=== PATIENT | male | born 1945 | race Caucasian/White ===

== ENCOUNTER 2021-04-05 07:17 | Outpatient (REF) | payer MEDICARE, SELFPAY ==
--- NOTE | ~2021-04-05 | XR_ITS ---
EXAMINATION: XR ELBOW, RIGHT CLINICAL INFORMATION: Pain COMPARISON: None TECHNIQUE: AP, lateral, and oblique views of the right elbow. FINDINGS: Bone alignment is normal. No fracture or dislocation is seen. There is mild arthritis at the humeral ulnar joint. There are periarticular soft tissue calcifications. There may be a small joint effusion. There is an osteophyte at the triceps tendon insertion to the olecranon. There are small ossifications adjacent to the medial and lateral humeral epicondyles. There is soft tissue arterial calcification. XR/XR elbow RT min 3V IMPRESSION: Arthritis. Periarticular soft tissue calcifications and question small joint effusion.
== END 2021-04-05 07:18 | disposition home or self-care (01) ==
LOC: HO.HOSX 07:17
PROVIDERS: Visit Provider Physician Assistant
DX: M19.021 Primary osteoarthritis, right elbow (principal); G56.21 Lesion of ulnar nerve, right upper limb
CPT/HCPCS: 73080; 99202

== ENCOUNTER → 2021-04-27 13:24 | Outpatient (BNVA) | payer MEDICARE, SELFPAY | PROVIDERS: PCP Nurse Practitioner; Visit Provider Orthopaedic Surgery | DX: M54.12 Radiculopathy, cervical region (principal); G56.21 Lesion of ulnar nerve, right upper limb; G56.01 Carpal tunnel syndrome, right upper limb | CPT/HCPCS: 99202 ==

== ENCOUNTER → 2021-05-11 10:39 | Outpatient (BNVA) | payer MEDICARE, SELFPAY | PROVIDERS: PCP Nurse Practitioner; Visit Provider Orthopaedic Surgery | DX: G56.01 Carpal tunnel syndrome, right upper limb (principal); G56.21 Lesion of ulnar nerve, right upper limb; M54.12 Radiculopathy, cervical region | CPT/HCPCS: 99202 ==

== ENCOUNTER → 2021-05-27 06:36 | Day surgery (SDC) | payer MEDICARE, SELFPAY ==
--- NOTE | 2021-05-26 09:41 | P.CONAN_ITS ---
HPI - Anesthesia Eval Consult details Narrative: Pt in new afib in preop. Case cx'd. 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 75yo M for Right Cubital Tunnel Release vs transposition,carpal tunnel release Cardiac cleared PMF Active Problems Active Problems: All Active Problems (Updated 04/27/21 @ 14:40 by Dorothea Rivera MD) Carpal tunnel syndrome of right wrist (Acute) Cervical radiculopathy (Acute) Cubital tunnel syndrome on right (Acute) Osteoarthritis of right elbow (Acute) Past Medical History Medical History (Updated 05/26/21 @ 09:47 by Smiley Leblanc NP) Anxiety Aortic insufficiency CAD (coronary artery disease) CKD (chronic kidney disease) Erectile dysfunction [id number] Gout H/O endocarditis HLD (hyperlipidemia) HTN (hypertension) Mitral valve regurgitation Osteoarthritis PAD (peripheral artery disease) Pulmonary nodules Thoracic aortic aneurysm Thrombocytopenia Tricuspid valve regurgitation Surgical History Surgical History (Updated 05/26/21 @ 09:47 by Smiley Leblanc NP) Hx of CABG (~2006) S/P mitral valve repair (~2006) Social History Social History (Updated 05/26/21 @ 09:47 by Smiley Leblanc NP) Alcohol intake: current Alcohol intake frequency: 0-2 drinks per day Alcohol type: wine Patient Tobacco Use Status: Former Tobacco user Quit Date: 2006 Current occupational status: retired 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 Allergies Allergy/AdvReac Type Severity Reaction Status Date / Time [id number]-IjI AdvReac Joint Pain Verified 05/27/21 06:58 Reductase Inhibitor Home Medications Medication Instructions Recorded Confirmed Last Taken Type aspirin 81 mg PO DAILY 05/26/21 05/26/21 Unknown History clotrimazole 1 % 1 appl TOPICAL 05/26/21 05/26/21 Unknown History topical cream BID colchicine 0.6 mg 1 tab PO DAILY 05/26/21 05/26/21 Unknown History tablet metoprolol 1 tab PO BID 05/26/21 05/26/21 Unknown History tartrate 25 mg tablet allopurinol 100 mg PO 05/27/21 05/27/21 Unknown History mg tablet Exam Exam Date and Time: May 26, 2021 0941 Narrative Narrative: EKG 03/2021 SR with 1st degree AV block, RBBB, LAFB, no signif ST-T wave changes ECHO 02/2020 mild to mod conc LVH with normal LV cavity size and systolic function, normal regional wall motion abn, EF 55-60%, nml RV size with grossly normal systolic function, mild, eccentric aortic insufficiency and a trileaflet valve, s/p mitral valve ring annuloplasty repair that is functioning well with no residual regurgitation, dilated aortic root at 4.4cm, ascending aorta at 4.3, transverse aorta at 4cm - c/w 2018 echo, unchanged, moderate LAE Assessment and Plan Assessment Anesthesia Assessment: Chart Reviewed
--- NOTE | 2021-05-27 07:26 | ECG_ITS ---
Test Reason : preop Blood Pressure : / mmHG Vent. Rate : 098 BPM Atrial Rate : 000 BPM P-R Int : 000 ms QRS Dur : 144 ms QT Int : 418 ms P-R-T Axes : 000 -77 059 degrees QTc Int : 533 ms Atrial fibrillation with premature ventricular or aberrantly conducted complexes Right bundle branch block Left anterior fascicular block Bifascicular block Abnormal ECG No previous ECGs available Referred By: Aby Mejía Electronically Signed By:CED MILLER MD
--- NOTE | 2021-05-27 08:01 | PC.NURSE ---
[place] [facility] in monitor irregular rhythm- no previous EKG in chart for comparison. Cardiac cleared cardiology Jennie Paredes MD 04/08/21. EKG ordered by Dr Bush found to be in new afib, RBBB, left anterior fasiclar block. Per Yesika, since patient is stable, asymptomatic patient able to return home and follow up with PCP, PCP to be notified of event. Case cancelled at this time. Patient belongings returned & ride called by patient self.
[2021-05-27 08:05] LABS: Hematocrit 41.1 % (42.0-52.0); Hemoglobin 14.1 g/dl (14.0-18.0); Mean Corpuscular HGB Conc 34.3 g/dl (31.0-36.0); Mean Corpuscular Hemoglobin 31.8 pg (27.0-33.0); Mean Corpuscular Volume 92.6 fL (80.0-98.0); Mean Platelet Volume 10.3 fL (9.4-12.4); Platelet Count 115 X10*3/uL (160-400); Red Blood Count 4.44 X10*6/uL (4.60-5.80); Red Cell Distribution Width 13.1 % (11.0-16.0); White Blood Count 5.4 X10*3/uL (4.8-10.8)
[2021-05-27 08:37] LABS: Anion Gap 9 (12-20); Blood Urea Nitrogen 26 mg/dL (9-16); Calcium 9.1 mg/dL (8.4-10.2); Carbon Dioxide 27 mmol/L (22-29); Chloride 110 mmol/L (96-108); Estimated Glomerular Filt Rate 56; Glucose Fasting 124 mg/dL (60-99); Potassium 4.2 mmol/L (3.3-5.1); Sodium 142 mmol/L (135-145)
== END ==
PROVIDERS: Nurse Practitioner; Visit Provider Orthopaedic Surgery
DX: G56.01 Carpal tunnel syndrome, right upper limb (principal); Z53.09 Procedure and treatment not carried out because of other contraindication; I12.9 Hypertensive chronic kidney disease with stage 1 through stage 4 chronic kidney disease, or unspecified chronic kidney disease; N18.30 Chronic kidney disease, stage 3 unspecified; I25.10 Atherosclerotic heart disease of native coronary artery without angina pectoris; Z95.1 Presence of aortocoronary bypass graft; I35.1 Nonrheumatic aortic (valve) insufficiency; D69.6 Thrombocytopenia, unspecified; Z79.899 Other long term (current) drug therapy; Z87.891 Personal history of nicotine dependence
CPT/HCPCS: 36415; 80048; 85027; 93005

== ENCOUNTER 2021-06-08 09:54 | Outpatient (REF) | payer MEDICARE, SELFPAY ==
[2021-06-08 12:43] LABS: Prothrombin Time 11.6 SEC (9.9-13.0)
== END 2021-06-08 09:55 | disposition home or self-care (01) ==
LOC: HO.LAB 09:54
PROVIDERS: PCP Internal Medicine; Referring Provider Internal Medicine; Visit Provider Internal Medicine
DX: Z01.810 Encounter for preprocedural cardiovascular examination (principal); I48.0 Paroxysmal atrial fibrillation; Z95.1 Presence of aortocoronary bypass graft; Z79.899 Other long term (current) drug therapy; Z87.891 Personal history of nicotine dependence; Z98.890 Other specified postprocedural states
CPT/HCPCS: 36415; 85610; 99202

== ENCOUNTER 2021-06-10 09:57 | Day surgery (SDC) | payer MEDICARE, SELFPAY ==
--- NOTE | 2021-06-09 13:05 | P.CONAN_ITS ---
Documented by User: Smiley Leblanc NP 06/21/21 13:18 HPI - Anesthesia Eval Consult details Narrative: 75yo M for Right Cubital Tunnel Release vs transposition,carpal tunnel release 05/27/21: Pt in new afib in preop. Case cx'd. Pt f/u with [facility] cardiology (originally cleared by pt's own impregnating helper). Now cleared by [facility] cardiology at [facility] Active Problems Active Problems: All Active Problems (Updated 06/08/21 @ 11:10 by Derek Herrmann MD) Status post aorto-coronary artery bypass graft (Acute) S/P mitral valve repair (Acute ~2006) Preoperative cardiovascular examination (Acute) PAF (paroxysmal atrial fibrillation) (Acute) Carpal tunnel syndrome of right wrist (Acute) Cervical radiculopathy (Acute) Cubital tunnel syndrome on right (Acute) Osteoarthritis of right elbow (Acute) Past Medical History Medical History Anxiety Aortic insufficiency CAD (coronary artery disease) CKD (chronic kidney disease) Erectile dysfunction Ihejaip-ke-ejz Gout H/O endocarditis HLD (hyperlipidemia) HTN (hypertension) Mitral valve regurgitation Osteoarthritis PAD (peripheral artery disease) Pulmonary nodules Thoracic aortic aneurysm Thrombocytopenia Tricuspid valve regurgitation Family History Family History Father No problems noted. Mother No problems noted. 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 Allergies Allergy/AdvReac Type Severity Reaction Status Date / Time [id number]-PsR Reductase AdvReac Joint Pain Verified 06/22/21 08:34 Inhibitor Home Medications Medication Instructions Recorded Confirmed Last Taken Type aspirin 81 mg PO DAILY 05/26/21 06/08/21 Unknown History clotrimazole 1 % topical cream 1 appl TOPICAL BID 05/26/21 06/08/21 Unknown History colchicine 0.6 mg tablet 1 tab PO DAILY 05/26/21 06/08/21 Unknown History allopurinol 100 mg tablet mg PO 05/27/21 06/08/21 Unknown History metoprolol tartrate 25 mg tablet 25 mg PO BID 06/08/21 06/08/21 Unknown History Exam Exam Date and Time: June 09, 2021 1305 Pertinent Lab Results Pertinent Lab Results: Laboratory Tests 05/27/21 05/27/21 07:47 07:47 WBC 5.4 Hgb 14.1 Hct 41.1 L Plt Count 115 L Sodium 142 Potassium 4.2 Chloride 110 H Carbon Dioxide 27 BUN 26 H Creatinine 1.26 Narrative Narrative: EKG 05/27/21 Vent. Rate : 098 BPM ? ? Atrial Rate : 000 BPM ?? P-R Int : 000 ms? QRS Dur : 144 ms ? ? QT Int : 418 ms ? ? ? P-R-T Axes : 000 -77 059 degrees ?? QTc Int : 533 ms ? Atrial fibrillation with premature ventricular or aberrantly conducted complexes Right bundle branch block Left anterior fascicular block Bifascicular block Abnormal ECG No previous ECGs available ECHO 02/2020 mild to mod conc LVH with normal LV cavity size and systolic function, normal regional wall motion abn, EF 55-60%, nml RV size with grossly normal systolic function, mild, eccentric aortic insufficiency and a trileaflet valve, s/p mitral valve ring annuloplasty repair that is functioning well with no residual regurgitation, dilated aortic root at 4.4cm, ascending aorta at 4.3, transverse aorta at 4cm - c/w 2019 echo, unchanged, moderate LAE Assessment and Plan Assessment Anesthesia Assessment: Chart Reviewed Documented by User: Edi Burrell MD 07/01/21 12:00 [facility] Past Medical History Medical History Anxiety Aortic insufficiency CAD (coronary artery disease) CKD (chronic kidney disease) Erectile dysfunction Kmzcegs-on-zsu Gout H/O endocarditis HLD (hyperlipidemia) HTN (hypertension) Mitral valve regurgitation Osteoarthritis PAD (peripheral artery disease) Pulmonary nodules Thoracic aortic aneurysm Thrombocytopenia Tricuspid valve regurgitation Family History Family History Father No problems noted. Mother No problems noted. 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 Meds Allergies Allergy/AdvReac Type Severity Reaction Status Date / Time Zqyyvvo-OUS-PvN Reductase AdvReac Joint Pain Verified 06/22/21 08:34 Inhibitor Home Medications Medication Instructions Recorded Confirmed Last Taken Type aspirin 81 mg PO DAILY 05/26/21 06/08/21 Unknown History clotrimazole 1 % topical cream 1 appl TOPICAL BID 05/26/21 06/08/21 Unknown History colchicine 0.6 mg tablet 1 tab PO DAILY 05/26/21 06/08/21 Unknown History allopurinol 100 mg tablet mg PO 05/27/21 06/08/21 Unknown History metoprolol tartrate 25 mg tablet 25 mg PO BID 06/08/21 06/08/21 Unknown History Exam Airway Mallampati Class: III TM Dist: >3cm Neck ROM: Full Loose/Missing/Broken Teeth: Yes Assessment and Plan Assessment Anesthesia Assessment: Anesthesia Plan Discussed Final Anesthetic Review Family History of Problems with Anesthesia: No History of Problems with Anesthesia: No NPO: Yes ASA Class: III Final Preanesthetic Review: No Changes in Pt Med Stat, Meds/Allgs Chart Reviewed, Consent Obtained/Reviewed and Anes Risks/Benef Reviewed Patient Risk: Intermediate Procedure Risk: Low Anesthetic Plan Anesthetic Plan: GA Disposition: Standard PACU
[2021-06-10] VITALS (7 sets, daily range): BP systolic 131–159; BP diastolic 58–85; PULSE 71–84; RESP 16–18; TEMP 36.1–36.6; O2SAT 98–99; BMI 31.6
[2021-06-10] MEDS: Lactated Ringers 1,000 ML 50 ML IVCONT (10:48)
--- NOTE | 2021-06-10 12:38 | MHC.SHP ---
Pre-Procedural Eval Section A Date of Service: 06/10/21 The patient is an INPATIENT: No Changes since office visit: No Cold of Flu in the past 2 weeks, No New Medical Problems, No Changes in Medication and No Patient answered all questions The History & Physical has been completed within 30 days and I have reviewed it.: Yes Section B Chief Complaint: carpal tunnel Allergies: Allergies Allergy/AdvReac Type Severity Reaction Status Date / Time Ipitmno-GGV-CtY Reductase AdvReac Joint Pain Verified 06/08/21 10:36 Inhibitor Plan I have reviewed the history and physical and performed a pertinent physical examination on my patient. No changes have occurred unless specified.
--- NOTE | 2021-06-10 12:39 | W.PM.OPN ---
Operative Note Operative Note Date of Service: 06/10/21 Narrative: Operative Note Narrative: Preop diagnosis: 1. right Cubital tunnel syndrome 2. Right carpal tunnel syndrome Postop diagnosis: Same Procedure: 1. right Cubital Tunnel Release 2. Right carpal tunnel release Surgeon: Dorothea Rivera MD Anesthesia: General Findings: Thickening and fibrosis about the ulnar nerve at the cubital tunnel Implants: none Tourniquet time: 19 minutes EBL: 5.0 ml Specimen: none Drains: None Complications: None Disposition: Brought to the recovery room in stable condition Plan: Follow-up in 10-14 days for wound check, and suture removal Indications: The patient is 75 years old with right cubital tunnel syndrome and right carpal tunnel syndrome with dense numbness . The risks and benefits of operative treatment, including but not limited to risk of damage to blood vessels, nerves, tendons, infection, recurrence, persistent pain or numbness, incomplete resolution of preoperative symptoms, or need for further surgery were discussed with the patient and they wished to proceed with surgery. Procedure: Once consent was obtained patient was brought back to the operating suite and placed in the operating table in a supine position. Perioperative antibiotics and anesthesia was administered by the anesthesia team. The limb was prepped and draped in a standard surgical fashion, and a sterile tourniquet applied to the proximal aspect of the right upper extremity. The limb was elevated exsanguinated with Esmarch bandage and the tourniquet inflated to 250 mm of mercury for a total tourniquet time of 19 minutes. Once assured that we had a good block, a 1.5 cm longitudinal incision was made centered over the right carpal tunnel. The incision was made through the skin to the subcutaneous tissues using a #15 blade. Dissection was made down to the level of the transverse carpal ligament with care being taken to protect the palmar cutaneous nerve. Once the transverse carpal ligament was clearly visualized, a longitudinal incision was made in the transverse carpal ligament 1st using a #15 blade, then using tenotomy scissors under direct visualization. Care was taken to look for and protect the motor branch of the median nerve when seen in this area. Once satisfied with our carpal tunnel release the wound was irrigated with normal saline. A 6 cm gently curved but longitudinally oriented incision was made centered over the cubital tunnel of the right upper extremity. Incision was made through the skin to the subcutaneous tissues using a # 15 Blade. I then dissected down to the level of the medial epicondyle and the cubital tunnel using tenotomy scissors. Care was taken to protect the lateral antebrachial cutaneous nerve. The ulnar nerve was identified just posterior to the medial intermuscular septum. The ulnar nerve was released in a proximal to distal direction using tenotomy in iris scissors while directly visualizing and protecting the ulnar nerve. Thickening and fibrosis was appreciated about the ulnar nerve as it passed through the cubital tunnel. The ulnar nerve was assessed as I passed the elbow through full flexion and extension and was found to remain stable within its groove. At this point the tourniquet was deflated and hemostasis obtained with a brief period of local pressure and bipolar electrocautery. The wound was copiously irrigated with normal saline. The subcutaneous layer was closed with 4-0 Vicryl suture, and the skin edges were reapproximated with 5-0 nylon suture. The wound was infiltrated with some 0.25% plain Marcaine for postop pain control and sterile dressings and a posterior splint was applied. The patient appears to have tolerated the procedure well and with no complications. All digits were well vascularized conclusion of the case.
== END 2021-06-10 14:32 ==
LOC: HO.SSS 09:57
PROVIDERS: PCP Internal Medicine; Visit Provider Orthopaedic Surgery
PROC: (CPT 64718; principal; 2021-06-10 12:10)
DX: G56.01 Carpal tunnel syndrome, right upper limb (principal); G56.21 Lesion of ulnar nerve, right upper limb; M54.12 Radiculopathy, cervical region; I25.10 Atherosclerotic heart disease of native coronary artery without angina pectoris; Z95.1 Presence of aortocoronary bypass graft; I12.9 Hypertensive chronic kidney disease with stage 1 through stage 4 chronic kidney disease, or unspecified chronic kidney disease; N18.30 Chronic kidney disease, stage 3 unspecified; Z87.891 Personal history of nicotine dependence; I34.0 Nonrheumatic mitral (valve) insufficiency; I71.2 Thoracic aortic aneurysm, without rupture; I48.0 Paroxysmal atrial fibrillation; Z98.890 Other specified postprocedural states; Z79.01 Long term (current) use of anticoagulants; Z79.82 Long term (current) use of aspirin; Z88.8 Allergy status to other drugs, medicaments and biological substances; Z79.899 Other long term (current) drug therapy
CPT/HCPCS: 64721; 64718; J0690; J1100; J2250; J2405; J3010

== ENCOUNTER → 2021-06-22 08:23 | Outpatient (BNVA) | payer MEDICARE, SELFPAY | PROVIDERS: Visit Provider Orthopaedic Surgery | DX: Z48.811 Encounter for surgical aftercare following surgery on the nervous system (principal); G56.02 Carpal tunnel syndrome, left upper limb; M54.12 Radiculopathy, cervical region | CPT/HCPCS: 99212 ==

== ENCOUNTER 2021-10-06 08:23 | Outpatient (REF) | payer MEDICARE, SELFPAY ==
--- NOTE | ~2021-10-06 | XR_ITS ---
EXAMINATION: XR HAND, LEFT CLINICAL INFORMATION: M79.642 - Pain in left hand COMPARISON: None TECHNIQUE: Left hand is imaged in 3 views. FINDINGS: Normal bony mineralization. No acute or healing fracture or destructive process. Ulnar variance is neutral. No carpal joint narrowing or erosive change. Narrowing third MCP joints with osteophytes, greater medial side. Lesser degenerative changes second MCP. No erosive change. PIP joints show no focal narrowing or erosive change. There is mild spurring medial base index PIP and fifth finger PIP. DIP joints are unremarkable. There are atherosclerotic calcifications involving the distal ulnar and radial arteries. XR/XR hand LT min 3V IMPRESSION: -Degenerative changes third MCP joint, lesser degenerative changes second MCP. -Osteophytes second and fifth finger PIP joints. -No fracture or destructive process. No erosive changes. -Atherosclerotic calcifications vasculature.
== END 2021-10-06 08:24 | disposition home or self-care (01) ==
LOC: HO.HOSX 08:23
PROVIDERS: Visit Provider Orthopaedic Surgery
DX: G56.03 Carpal tunnel syndrome, bilateral upper limbs (principal); G56.21 Lesion of ulnar nerve, right upper limb
CPT/HCPCS: 73130; 99202

== ENCOUNTER 2021-12-13 16:22 | Outpatient (REF) | payer MEDICARE, SELFPAY ==
[2021-12-13 16:37] LABS: MANUAL DIFF FLAG NO
[2021-12-13 17:53] LABS: Basophils Percent Auto 0.2 % (0-2); Eosinophils Percent Auto 0.1 % (0-4); Hematocrit 39.3 % (42.0-52.0); Hemoglobin 13.1 g/dl (14.0-18.0); Imm Gran Abs Auto 0.31 X10*3/uL (0.00-0.03); Imm Gran Pct Auto 2.8 % (0.0-0.4); Lymphocytes Absolute Auto 2.1 X10*3/uL (1.2-4.9); Lymphocytes Percent Auto 18.8 % (20-40); Mean Corpuscular HGB Conc 33.3 g/dl (31.0-36.0); Mean Corpuscular Hemoglobin 32.2 pg (27.0-33.0); Mean Corpuscular Volume 96.6 fL (80.0-98.0); Mean Platelet Volume 10.6 fL (9.4-12.4); Monocytes Absolute Auto 0.8 X10*3/uL (0.1-1.2); Monocytes Percent Auto 7.3 % (2-11); Neutrophils Absolute Auto 7.7 x10*3/uL (2.0-8.3); Neutrophils Percent Auto 70.8 % (45-73); Platelet Count 156 X10*3/uL (160-400); Red Blood Count 4.07 X10*6/uL (4.60-5.80); Red Cell Distribution Width 13.3 % (11.0-16.0); White Blood Count 10.9 X10*3/uL (4.8-10.8)
[2021-12-13 18:25] LABS: Estimated Glomerular Filt Rate 51
[2021-12-13 18:37] LABS: Uric Acid 4.9 mg/dL (3.4-7.0)
== END 2021-12-13 16:23 | disposition home or self-care (01) ==
LOC: HO.LAB 16:22
PROVIDERS: Visit Provider Internal Medicine Rheumatology
DX: M17.0 Bilateral primary osteoarthritis of knee (principal); M10.9 Gout, unspecified; M19.021 Primary osteoarthritis, right elbow; Z79.899 Other long term (current) drug therapy
CPT/HCPCS: 36415; 82565; 84550; 85025; 99212

== ENCOUNTER 2022-05-03 11:01 | Outpatient (REF) | payer MEDICARE, SELFPAY ==
[2022-05-03 14:56] LABS: Uric Acid 5.4 mg/dL (3.4-7.0)
[2022-05-03 15:42] LABS: Estimated Glomerular Filt Rate 60
== END 2022-05-03 11:02 | disposition home or self-care (01) ==
LOC: HO.10HDL 11:01
PROVIDERS: Visit Provider Internal Medicine Rheumatology
DX: M10.9 Gout, unspecified (principal)
CPT/HCPCS: 36415; 82565; 84550; 99212

== ENCOUNTER → 2022-11-03 09:45 | Outpatient (BNVA) | payer MEDICARE, SELFPAY | PROVIDERS: PCP Nurse Practitioner Family; Visit Provider Internal Medicine Rheumatology | DX: M10.9 Gout, unspecified (principal); R26.81 Unsteadiness on feet; M17.0 Bilateral primary osteoarthritis of knee | CPT/HCPCS: 99212 ==

== ENCOUNTER 2022-12-20 08:54 | Outpatient (AMB) | payer MEDICARE, SELFPAY ==
[2022-12-20 09:08] VITALS: BMI 30.1
--- NOTE | 2022-12-20 09:08 | MHC.OFFVIS ---
Intake Vital Signs 12/20/22 09:08 Height 5 ft 10 in Weight 210 lb BMI 30.1 Intake Visit Reasons: OV- R Cubital & CTR 06/10/21 AR Intake Note: Meggan 76 yr old male presents today for his status post a right carpal tunnel release and a right cubital tunnel release with Dr. Rivera on 06/10/2021. States he is continuing to have numbness and pain. He has no control of hold a pen or pencil. He is experiencing tingling in his finger tips. He is not able to shave due to the weakness and numbness in his pinky and ring finger. Allergies Heqmmys-KGK-LuY Reductase Inhibitor Adverse Reaction (Verified 12/20/22 09:28) Joint Pain HPI OV- R Cubital & CTR 06/10/21 AR HPI Details Meggan is a 76 year old right hand dominant man who presents with increasing right hand clumsiness and weakness. He has difficulty manipulating objects or performing daily activities. He is S/P right Carpal tunnel and Cubital tunnel release, DOS: 06/10/21, with dense numbness in the ulnar nerve distribution and intrinsic wasting. He complains today of ongoing weakness, numbness, and pain in his right hand. Most of his weakness and numbness is in the ring & small fingers. 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 He says by the afternoon he sometimes is unable to sign his name. He has some cervical radiculopathy, and he has yet to be seen by a specialist for this condition. FORMERLY [facility], [facility] Medical History Anxiety Aortic insufficiency CAD (coronary artery disease) CKD (chronic kidney disease) Erectile dysfunction Uzbwoza-nz-anu Gout H/O endocarditis HLD (hyperlipidemia) HTN (hypertension) Mitral valve regurgitation Osteoarthritis PAD (peripheral artery disease) Pulmonary nodules Thoracic aortic aneurysm Thrombocytopenia Tricuspid valve regurgitation Surgical History Hx of CABG (~2006) S/P mitral valve repair (~2006) Family History Father No problems noted. Mother No problems noted. 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 Somewhat better sensation in the median nerve distribution of his left hand He has intrinsic wasting and is unable to finger cross. Right hand: Dense numbness in the ulnar nerve distribution. More normal sensation in the median nerve distribution Slight Thenar wasting & more intrinsic wasting. Good APB muscle belly firing. Unable to finger cross Vascular: Cap refill brisk ROM: He can make a fist and extend all his digits He has some mild stiffness with some arthritic changes He has good elbow ROM He is lacking perhaps 20-30 degrees of elbow extension Nerve conduction study Performed at an outside facility by Dr. Gus Lowe on 05/01/2019: 1. Bilateral moderate to severe median neuropathy at the wrist consistent with carpal tunnel syndrome 2. 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 Electrodiagnostic evidence for lower cervical radiculopathy.? Please see that report for additional information is necessary.? Psych Appearance: grossly normal Affect: normal affect Attitude: cooperative Assessment & Plan Assessment & Plan (1) Carpal tunnel syndrome of left wrist: Code(s): G56.02 - Carpal tunnel syndrome, left upper limb (2) Carpal tunnel syndrome of right wrist: Code(s): G56.01 - Carpal tunnel syndrome, right upper limb (3) Cervical radiculopathy: Code(s): M54.12 - Radiculopathy, cervical region (4) Cubital tunnel syndrome on right: Code(s): G56.21 - Lesion of ulnar nerve, right upper limb Plan Assessment and plan: 1. Cervical radiculopathy Worsening weakness in his right hand 2. Right cubital tunnel syndrome S/P release DOS: 06/10/21 Preoperatively With dense numbness, intrinsic wasting, and loss of finger cross Postoperatively he still has numbness in the small and ring fingers. He also has intrinsic wasting and weakness in his right hand 3. Right carpal tunnel syndrome S/P release DOS: 06/10/21 Preoperatively with decreased subjective sensation and some early thenar wasting Postoperatively with some improvement in sensation per patient The patient complains of worsening weakness and clumsiness in his hand, which has not improved following his surgery. He says his weakness has in fact worsened in the last few months and he is now unable to hold and manipulate small objects I suspect this may be related to his Cervical radiculopathy and I recommend a referral to our interventional pain clinic I explained this to him, and he is in agreement I referred him to Pain Management to assess his C-spine and manage his cervical radiculopathy. They can help determine whether not he may benefit from a referral to the spine surgeon. 4. Left Carpal tunnel syndrome, moderate-severe He feels like he does not have much numbness, or at least is not bothering him. I explained that he would likely benefit from a carpal tunnel release. He would like to think about this and knows that he can contact the clinic to discuss treatment 5. Left Cubital tunnel syndrome, S/P release Performed at [facility] sometime after his EMG done on 05/01/19 No improvement in ulnar nerve sensation or in intrinsic wasting. Possible contribution also from cervical radiculopathy. Scribed for Dorothea Rivera MD by Damaso Blair, medical billing manager, on 12/20/22 at 10:25 AM, EST. Orders: Referrals Pain Management Referral M54.12 - Radiculopathy, cervical region Coding Level of Care Code Est Pt Level 4 (13001) Diagnoses Carpal tunnel syndrome of left wrist G56.02 Carpal tunnel syndrome of right wrist G56.01 Cervical radiculopathy M54.12 Cubital tunnel syndrome on right G56.21
== END 2022-12-20 10:36 | disposition home or self-care (01) ==
PROVIDERS: PCP Nurse Practitioner Family; Visit Provider Orthopaedic Surgery
DX: G56.02 Carpal tunnel syndrome, left upper limb (principal); G56.01 Carpal tunnel syndrome, right upper limb; G56.21 Lesion of ulnar nerve, right upper limb
CPT/HCPCS: 99214

== ENCOUNTER → 2022-12-20 08:54 | Outpatient (BNVA) | payer MEDICARE, SELFPAY | PROVIDERS: PCP Nurse Practitioner Family; Visit Provider Orthopaedic Surgery | DX: G56.02 Carpal tunnel syndrome, left upper limb (principal); M54.12 Radiculopathy, cervical region; Z86.69 Personal history of other diseases of the nervous system and sense organs | CPT/HCPCS: 99212 ==

== ENCOUNTER 2023-01-16 08:54 | Outpatient (AMB) | payer MEDICARE, SELFPAY ==
--- NOTE | 2023-01-16 09:04 | MHC.OFFVIS ---
Intake Vital Signs 01/16/23 09:13 Height 5 ft 10 in Weight 211 lb BMI 30.3 BP 136/78 Blood Pressure Location Rt brachial Position Sitting Respiration 18 Pulse 97 Pulse Source Pulse Oximeter Pulse Oximetry (%) 95 Oxygen Delivery Method Room Air Intake Visit Reasons: Radiculopathy, lumbar region Intake Note: patient comes in for initial visit was referred by orthopedics. Allergies Bunakwu-CVH-YzK Reductase Inhibitor Adverse Reaction (Verified 01/16/23 09:13) Joint Pain HPI HPI Comments History of Present Illness Details Mr. Agee is very pleasant 77 years old gentleman who presents in my office with complains on pain in the neck as well as pain in the lumbar back. Reports pain in the neck started in 2020 when he fell in his garage. He reports that pain is radiating down to the large shoulder but not below the level of the shoulder. He also reports sensation of pins and needles and numbness in the pinky and ring fingers on the right. He tried physical therapy at that time. He reports minimal improvement with physical therapy. He tried NSAIDs without success, he reports when pain is exacerbated to unbearable level he is being prescribed oxycodone. He tried muscle relaxants which were not effective for control of his pain. He also complains on pain in the lower back across the lumbar spine without radiation. He was operated according to him on his lumbar spine twice. He also received physical therapy for this pain in the past. He cannot sleep normally because of his pain cannot do activities of daily living he can take care of himself but he cannot function normally. He is retired individual. Weather changes in movements aggravates his pain. Heat and cold alleviate his pain. The pain is most severe in the afternoon and this severe in the morning. He reports his pain in terms of tissue damage as: Pinching cramping crushing tingling stinging tight squeezing and tearing sensation he had MRI in the past of his cervical spine and lumbar spine. Those are not available to me. Had physical therapy as above. Long time ago he had neck steroid injections and they were moderately helpful for his pain but the relief came few months after the injection. His past medical history significant for dizziness history of heart murmur and a history of mitral valve repair not replacement he has medical history of gout/pseudogout he has arthritis and there is suspicion is that he has minimal ascending thoracic aortic aneurysm Past surgical history significant for back surgeries multiple heart 12 years ago repair and hip replacement which was done 12 years ago. He denies smoking cigarettes admits drinking alcohol with meals denies recreational drugs. [facility] Medical History (Updated 01/16/23 @ 09:51 by Eran Mascorro MD) Anxiety Aortic insufficiency CAD (coronary artery disease) Cervical radiculopathy CKD (chronic kidney disease) Erectile dysfunction Tbqceji-lc-poy Gout H/O endocarditis HLD (hyperlipidemia) HTN (hypertension) Mitral valve regurgitation Osteoarthritis PAD (peripheral artery disease) Pulmonary nodules Thoracic aortic aneurysm Thrombocytopenia Tricuspid valve regurgitation Surgical History Hx of CABG (~2006) S/P mitral valve repair (~2006) Family History Father No problems noted. Mother No problems noted. 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 Reports pain exacerbation on the right with turning the head to the left. Reports bilateral numbness more on the right and less on the left on the pinky finger and ring finger. Denies Valsalva maneuver aggravate pain in the neck. Lhermitte test and Spurling tests are negative for pain increase. Chest Chest palpation & inspection: normal inspection of the chest Cardio Jugular venous distension: no JVD Back/Spine/Pelvis Other: On inspection there is midline scar in the projection of the lumbar spine. The scar is very well-healed no signs of inflammation. Range of motion lumbar spine is not affected. Neuro General: patient oriented x3 Psych Appearance: grossly normal Mental Status: mental status grossly normal Speech and movement: Normal speech and movement present Affect: normal affect Attitude: cooperative Thought process: Normal thought process present Thought content: Normal thought content present Insight: Good insight present (Psych) Judgement: Good judgement present (Psych) Assessment & Plan Assessment & Plan (1) Spondylosis of cervical spine: Code(s): M47.812 - Spondylosis without myelopathy or radiculopathy, cervical region (2) Postlaminectomy syndrome of lumbar region: Code(s): M96.1 - Postlaminectomy syndrome, not elsewhere classified (3) Chronic pain syndrome: Code(s): G89.4 - Chronic pain syndrome (4) Cervical radiculopathy: Code(s): M54.12 - Radiculopathy, cervical region Plan: I will send this patient for physical therapy for cervical spine. I recommend him to continue home exercise program what he will learn in physical therapy. I also will schedule him for appointment with me in 1 month. During this period of time we will obtain results of the MRI at [facility] as well as dictations of the procedures doctor Garcia performed on him in the past on his lumbar spine. Orders: Orders PT Evaluation and Treatment Today G89.4 - Chronic pain syndrome, M47.812 - Spondylosis without myelopathy or radiculopathy, cervical region, M54.12 - Radiculopathy, cervical region Coding Level of Care Code New Pt Level 4 (78219) Diagnoses Spondylosis of cervical spine M47.812 Postlaminectomy syndrome of lumbar region M96.1 Chronic pain syndrome G89.4 Cervical radiculopathy M54.12
[2023-01-16 09:13] VITALS: BP 136/78; PULSE 97; RESP 18; O2SAT 95; BMI 30.3
== END 2023-01-16 09:41 | disposition home or self-care (01) ==
PROVIDERS: PCP Nurse Practitioner Family; Visit Provider Anesthesiology
DX: M47.812 Spondylosis without myelopathy or radiculopathy, cervical region (principal); M96.1 Postlaminectomy syndrome, not elsewhere classified; G89.4 Chronic pain syndrome; M54.12 Radiculopathy, cervical region
CPT/HCPCS: 99203

== ENCOUNTER → 2023-01-16 08:54 | Outpatient (BNVA) | payer MEDICARE, SELFPAY | PROVIDERS: PCP Nurse Practitioner Family; Visit Provider Anesthesiology | DX: G89.4 Chronic pain syndrome (principal); M47.812 Spondylosis without myelopathy or radiculopathy, cervical region; M96.1 Postlaminectomy syndrome, not elsewhere classified; M54.12 Radiculopathy, cervical region | CPT/HCPCS: 99202 ==

== ENCOUNTER 2023-01-30 09:56 | Outpatient (AMB) | payer MEDICARE, SELFPAY ==
--- NOTE | 2023-01-30 10:41 | MHC.OFFVIS ---
Intake Intake Visit Reasons: Gout Intake Note: Patient here for gout follow up. Earring Maker Required: No Accompanied by: Self / Same As Patient Allergies Nzapxgc-GHU-SvI Reductase Inhibitor Adverse Reaction (Verified 01/30/23 10:45) Joint Pain Medication List - Last Reconciled 01/30/23 by Derrick Xavier MD allopurinol 300 mg (3 x 100 mg) PO DAILY amlodipine 2.5 mg PO DAILY [aspirin 81 mg PO DAILY] clotrimazole 1% 1 appl topical BID colchicine (gout) 0.6 mg PO DAILY fluticasone propionate 50 mcg/actuation intranasal metoprolol tartrate 25 mg PO BID tadalafil 20 mg PO DIRECTED HPI HPI Comments History of Present Illness Details The patient returns for evaluation of his gout, osteoarthritis, probable pseudogout, and hand numbness. He does get occasional right knee pain. Some days it is more severe than others. There has been no recent redness or swelling. Today the knee feels fine. He remains on allopurinol 300 mg daily and colchicine 0.6 mg daily. He still is disappointed about his bilateral hand numbness. This is more severe on the right in spite of carpal tunnel and cubital tunnel surgery. He says there still is decreased sensation in the fingers. He also notes decreased hog raiser strength. The left hand has similar numbness but it is no where near as severe. He did see pain management but no definitive planned was agreed upon. [facility] Medical History (Updated 01/16/23 @ 09:51 by Eran Mascorro MD) Anxiety Gout Erectile dysfunction Aortic insufficiency [id number]-dq-[id number] HTN (hypertension) Thoracic aortic aneurysm Pulmonary nodules Thrombocytopenia CKD (chronic kidney disease) PAD (peripheral artery disease) Tricuspid valve regurgitation Mitral valve regurgitation H/O endocarditis CAD (coronary artery disease) Osteoarthritis HLD (hyperlipidemia) Cervical radiculopathy Surgical History S/P mitral valve repair (~2006) Hx of CABG (~2006) Family History Father No problems noted. Mother No problems noted. 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 Card Details: Negative chest pain, edema and syncope Resp Details: Negative for SOB, cough and wheezing GI Details: Negative indigestion/heartburn, nausea, abdominal pain, bowel changes, diarrhea, constipation and bloody stool. Endo Details: Negative for polyuria and polydypsia Álvaro/Lymph Details: Negative for excessive bruising or bleeding. Physical Exam APPEARANCE: Patient in no acute distress EYES no redness, pupils equal and reactive to light, eyelids normal EXTREMITIES: Trace ankle edema. No no calf tenderness, normal peripheral pulses. JOINT EXAM: Cervical Spine:. Mild discomfort with lateral flexion at 10 degrees of rotation at 45 degrees with some paraspinal muscle tenderness. Thoracic Spine:. No scoliosis. No tenderness on palpation. Lumbar Spine:. Alignment normal. Full range of motion with some lumbar pain at the extremes. No tenderness. Chest Wall:. No tenderness, swelling, increased warmth or erythema. Hands: Right: There is some mild bony thickening at the 2nd through 4th PIP joints. They seem to be held more in a flexure position but can be passively fully extended. There is no flexor tendon triggering. There may be some thenar atrophy. There is however decreased sensation over all the fingertips. There are no objective signs of Raynaud's symptoms. Left: Slight bony enlargement without tenderness at the PIP joints. No sensory deficit can be confirmed. There is no areas of tenderness or soft tissue swelling. Wrists:. Flexion and extension seem intact 75 degrees. No tenderness or soft tissue swelling. Elbows:. Right: The elbow lacks about 20 degrees of full extension. It does flex to 90 degrees but without pain. There is some slight tenderness over the elbow joint but no soft tissue swelling, redness or warmth. There is no medial or lateral epicondylar tenderness today. Left: This elbow also lacks about 30 degrees of full extension but flexes today and there is no pain with motion. There is no tenderness, redness or warmth. Shoulders: Right: mild discomfort with extremes of motion. No tenderness or swelling. Left: Full range of motion without pain. No tenderness, weakness, swelling, increased warmth or erythema. Hips:. Full range of motion without pain. Hip bursa:. No tenderness. Knees: Right: Mild patellofemoral crepitus but full range of motion. There is some slight medial compartment tenderness but no effusion, redness or warmth. Left: Mild patellofemoral crepitus and normal pain-free range of motion. There is some minimal medial compartment tenderness without effusion, redness or warmth Ankles: Normal pain-free range of motion without tenderness, swelling, increased warmth or erythema. Feet: There is mild bony enlargement and hallux valgus deformity at the 1st MTP joints bilaterally. These joints have some decrease in the extent of range of motion but are not tender, red or warm today. ? Results Reviewed Results Reviewed: April 2022: Creatinine 1.18, uric acid 5.4 Assessment & Plan Assessment & Plan (1) Osteoarthritis of knees, bilateral: Comment: with chondrocalcinosis Code(s): M17.0 - Bilateral primary osteoarthritis of knee (2) History of carpal tunnel surgery of right wrist: Comment: : Some residual sensory deficits Code(s): Z98.890 - Other specified postprocedural states (3) Osteoarthritis cervical spine: Code(s): M47.812 - Spondylosis without myelopathy or radiculopathy, cervical region (4) Osteoarthritis of right elbow: Comment: post-trauma Code(s): M19.021 - Primary osteoarthritis, right elbow (5) Gout: Comment: Recurrent attacks; + MSU crystals right knee 2014 On/off allopurinol - Restarted 09/2019 Code(s): M10.9 - Gout, unspecified Plan I think the knee pain is due to osteoarthritis. He does have chondrocalcinosis in the knee and a crystal proven diagnosis of gout in the past but has not had recent inflammatory disease in the knee. The uric acid seemed well controlled last year but we will check another creatinine and uric acid today. He will continue for now with the allopurinol at 300 mg daily in a prophylactic 0.6 mg daily colchicine. I told him that the osteoarthritis in the right knee may progress in the future such that injections and other therapy is unacceptable treatment and he may opt for a knee replacement. There is some osteoarthritis noted of course in the right elbow and in the hands. I think most of his right hand numbness is secondary to nerve damage from his nerve compression at the elbow and wrist. I suspect there was irreversible nerve damage even before he had surgery. A follow-up in 6 months is recommended. I will get back to him with the results of the uric acid from today. Orders: Orders Uric Acid Today M10.9 - Gout, unspecified Creatinine Today M10.9 - Gout, unspecified Coding Level of Care Code Est Pt Level 3 (87852) Diagnoses Osteoarthritis of knees, bilateral M17.0 History of carpal tunnel surgery of right wrist Z98.890 Osteoarthritis cervical spine M47.812 Osteoarthritis of right elbow M19.021 Gout M10.9
== END 2023-01-30 11:32 | disposition home or self-care (01) ==
PROVIDERS: PCP Nurse Practitioner Family; Referring Provider Nurse Practitioner Family; Visit Provider Internal Medicine Rheumatology
DX: M17.0 Bilateral primary osteoarthritis of knee (principal); Z98.890 Other specified postprocedural states; M47.812 Spondylosis without myelopathy or radiculopathy, cervical region; M19.021 Primary osteoarthritis, right elbow; M10.9 Gout, unspecified
CPT/HCPCS: 99213

== ENCOUNTER → 2023-01-30 09:56 | Outpatient (BNVA) | payer MEDICARE, SELFPAY | PROVIDERS: PCP Nurse Practitioner Family; Referring Provider Nurse Practitioner Family; Visit Provider Internal Medicine Rheumatology | DX: M17.0 Bilateral primary osteoarthritis of knee (principal); M11.262 Other chondrocalcinosis, left knee; M11.261 Other chondrocalcinosis, right knee; M47.812 Spondylosis without myelopathy or radiculopathy, cervical region; M19.021 Primary osteoarthritis, right elbow; M10.9 Gout, unspecified | CPT/HCPCS: 36415; 82565; 84550; 99212 ==

== ENCOUNTER 2023-01-30 11:36 | Outpatient (REF) | payer MEDICARE, SELFPAY ==
[2023-01-30 13:59] LABS: Estimated Glomerular Filt Rate 60
== END 2023-01-30 11:37 | disposition home or self-care (01) ==
LOC: HO.10HDL 11:36
PROVIDERS: Visit Provider Internal Medicine Rheumatology
DX: Z13.89 Encounter for screening for other disorder (principal)
CPT/HCPCS: 36415; 82565; 84550

== ENCOUNTER 2023-02-15 14:55 | Outpatient (AMB) | payer MEDICARE, SELFPAY ==
--- NOTE | 2023-02-15 15:39 | MHC.OFFVIS ---
Intake Vital Signs 02/15/23 15:51 Height 5 ft 10 in Weight 215 lb 2 oz BMI 30.9 BP 155/71 H Blood Pressure Location Rt brachial Position Sitting Respiration 16 Pulse 70 Pulse Source Pulse Oximeter Pulse Oximetry (%) 96 Oxygen Delivery Method Room Air Intake Visit Reasons: 1 Month Follow UP Intake Note: patient comes in for 1 month follow up. Allergies Hlynggh-LCR-SzB Reductase Inhibitor Adverse Reaction (Verified 02/15/23 15:52) Joint Pain HPI HPI Comments History of Present Illness Details Mr. Agee is back in my office with continuing complain on cervicalgia. He was sent for physical therapy last time he was office on initial evaluation and the physical therapy unfortunately was not scheduled because of the confusion of where the patient wants to go to physical therapy. He wants to go to physical therapy in [place], [place] in [facility] facility. He reports today progression of the weakness in the right upper extremity. We obtained reports of the MRI he had in the past with [facility] and dictation of the MRI is as below. I feel it is necessary for us to repeat the MRI because there is significant changes demonstrating nerve root compressions at C5-C6 and C6-C7 interspaces which was recorded 11/02/2021. With progression of the symptoms I think this is troublesome to consider watchful waiting for this gentleman and I am thinking about referring this patient to a neurosurgeon. Prior: Very pleasant 77 years old gentleman who presents in my office with complains on pain in the neck as well as pain in the lumbar back. Reports pain in the neck started in 2020 when he fell in his garage. He reports that pain is radiating down to the large shoulder but not below the level of the shoulder. He also reports sensation of pins and needles and numbness in the pinky and ring fingers on the right. He tried physical therapy at that time. He reports minimal improvement with physical therapy. He tried NSAIDs without success, he reports when pain is exacerbated to unbearable level he is being prescribed oxycodone. He tried muscle relaxants which were not effective for control of his pain. He also complains on pain in the lower back across the lumbar spine without radiation. He was operated according to him on his lumbar spine twice. He also received physical therapy for this pain in the past. he had neck steroid injections by they were moderately helpful for his pain but the relief came few months after the injection. His past medical history significant for dizziness history of heart murmur and a history of mitral valve repair not replacement he has medical history of gout/pseudogout he has arthritis and there is suspicion is that he has minimal ascending thoracic aortic aneurysm Past surgical history significant for back surgeries multiple heart 12 years ago repair and hip replacement which was done 12 years ago. He denies smoking cigarettes admits drinking alcohol with meals denies recreational drugs. [facility] Medical History (Updated 01/16/23 @ 09:51 by Eran Mascorro MD) Anxiety Gout Erectile dysfunction Aortic insufficiency Txwmvek-lp-awb HTN (hypertension) Thoracic aortic aneurysm Pulmonary nodules Thrombocytopenia CKD (chronic kidney disease) PAD (peripheral artery disease) Tricuspid valve regurgitation Mitral valve regurgitation H/O endocarditis CAD (coronary artery disease) Osteoarthritis HLD (hyperlipidemia) Cervical radiculopathy Surgical History S/P mitral valve repair (~2006) Hx of CABG (~2006) Family History Father No problems noted. Mother No problems noted. 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 Reports pain exacerbation on the right with turning the head to the left. Reports bilateral numbness more on the right and less on the left on the pinky finger and ring finger. Now admits that Valsalva maneuver aggravates his pain in the neck. Lhermitte test and Spurling tests are still negative for pain increase. But there is significant weakness of the muscular banking services officer of the right hand (patient is right handed individual) compared to the left hand banking services officer. Chest Chest palpation & inspection: normal inspection of the chest Cardio Jugular venous distension: no JVD Back/Spine/Pelvis Other: On inspection there is midline scar in the projection of the lumbar spine. The scar is very well-healed no signs of inflammation. Range of motion lumbar spine is not affected. Neuro General: patient oriented x3 Psych Appearance: grossly normal Mental Status: mental status grossly normal Speech and movement: Normal speech and movement present Affect: normal affect Attitude: cooperative Thought process: Normal thought process present Thought content: Normal thought content present Insight: Good insight present (Psych) Judgement: Good judgement present (Psych) Results Reviewed Results Reviewed: MRI of cervical spine 11/02/2021. Cerebellar tonsils are normally positioned. Vertebral bodies are maintained in height. There is no focal signal abnormalities within the spinal cord. C2-C3 level hypertrophy of the facet joints. No local disc herniation spinal cord or nerve root compression. C3-C4 disc is decreased at T2 signal. Hypertrophy of right facet joint and right uncovertebral joint. Stenosis of the right lateral recess and the right C4 neural foramina there is no spinal cord compression. C4-C5 decreased in height of T2 signal of the disc. Marked hypertrophy of the right facet joint and bilateral hypertrophy of the uncovertebral joints. There is stenosis of the lateral recess and C5 neural foramina. It is more prominent on the right. There is narrowing of the anterior subarachnoid space and effacement of the anterior surface of the spinal cord. No obvious spinal cord compression. C5-C6: Disc is decreased in height and T2 signal. Mild retrolisthesis of C5 over C6. Bulging of the disc. Hypertrophy of the facet joints. Wound care vertebral joints with stenosis of the lateral recess and C6 neural foramina. There is compression of the C6 nerve roots. There is narrowing of the anterior subarachnoid space and effacement of the anterior surface of the spinal cord. No obvious spinal cord compression. C6-C7: Disc is decreased in height and T2 signal. There is bulging of the disc and marginal osteophytes as well as hypertrophic changes in the uncovertebral joints. There is stenosis of the lateral recesses and C7 neural foramina. There is compression of the C7 nerve roots. C7-T1 small central herniation of the disc there is no spinal cord or nerve root compression Assessment & Plan Assessment & Plan (1) Cervical radiculopathy: Code(s): M54.12 - Radiculopathy, cervical region Plan: I will send again this patient for physical therapy for cervical spine. This will be done to his hometown physical therapy in [facility]. The MRI which was performed 1 year ago at [facility] demonstrated to levels of nerve root compression C5-C6 and C6-C7. The patient demonstrates radiculopathy of his right upper extremity. I am planning to send this patient for neurosurgical consult and neurosurgeon appreciates fresh MRI to evaluate this patient. Besides the weakness of the right upper extremity turn to the worse. I think it is time to repeat MRI anyway. I will schedule him for an appointment after the MRI is ready and refer him to a neurosurgeon. I spoke today with the patient about neurosurgical consult he seem to be not very eager to go to a neurosurgeon but I discussed the situation with him, I tried to convince him that in his case neuro surgery is not about the pain, if his condition will progress he may lose rest of the function of his right upper extremity. (2) Chronic pain syndrome: Code(s): G89.4 - Chronic pain syndrome (3) Spondylosis of cervical spine: Code(s): M47.812 - Spondylosis without myelopathy or radiculopathy, cervical region (4) Osteoarthritis cervical spine: Code(s): M47.812 - Spondylosis without myelopathy or radiculopathy, cervical region (5) Postlaminectomy syndrome of lumbar region: Code(s): M96.1 - Postlaminectomy syndrome, not elsewhere classified Orders: Orders PT Evaluation and Treatment Today G89.4 - Chronic pain syndrome, M47.812 - Spondylosis without myelopathy or radiculopathy, cervical region, M54.12 - Radiculopathy, cervical region MR cervical spine wo con Today M47.812 - Spondylosis without myelopathy or radiculopathy, cervical region Coding Level of Care Code Est Pt Level 4 (30880) Diagnoses Cervical radiculopathy M54.12 Chronic pain syndrome G89.4 Spondylosis of cervical spine M47.812 Osteoarthritis cervical spine M47.812 Postlaminectomy syndrome of lumbar region M96.1
[2023-02-15 15:51] VITALS: BP 155/71; PULSE 70; RESP 16; O2SAT 96; BMI 30.9
== END 2023-02-15 16:16 | disposition home or self-care (01) ==
PROVIDERS: PCP Nurse Practitioner Family; Visit Provider Anesthesiology
DX: M54.12 Radiculopathy, cervical region (principal); G89.4 Chronic pain syndrome; M47.812 Spondylosis without myelopathy or radiculopathy, cervical region; M96.1 Postlaminectomy syndrome, not elsewhere classified
CPT/HCPCS: 99214

== ENCOUNTER → 2023-02-15 14:55 | Outpatient (BNVA) | payer MEDICARE, SELFPAY | PROVIDERS: PCP Nurse Practitioner Family; Visit Provider Anesthesiology | DX: M54.12 Radiculopathy, cervical region (principal); M47.812 Spondylosis without myelopathy or radiculopathy, cervical region; M96.1 Postlaminectomy syndrome, not elsewhere classified; G89.4 Chronic pain syndrome | CPT/HCPCS: 99212 ==

== ENCOUNTER 2023-03-11 08:37 | Outpatient (REF) | payer MEDICARE, SELFPAY ==
--- NOTE | ~2023-03-11 | MR_ITS ---
EXAMINATION: MR CERVICAL SPINE WITHOUT CONTRAST CLINICAL INFORMATION: Right upper extremity weakness COMPARISON: None TECHNIQUE: MRI of the cervical spine was obtained using routine sequences without contrast. FINDINGS: The craniocervical junction is intact. The cervical lordosis is preserved. Trace anterolisthesis at C3-C4 and C4-C5 and trace retrolisthesis at C5-C6. Vertebral body heights are normal without acute compression fracture. No suspicious osseous lesion. Diffuse disc desiccation with severe C6-C7 and moderate to severe C5-C6 disc height loss. Type II Modic endplate change at C6-C7. There are multilevel degenerative changes with level by level detail as follows: C2-C3: Right greater than left facet arthrosis. No spinal canal or neural foraminal stenosis. C3-C4: Disc osteophyte complex and right greater than left uncovertebral joint hypertrophy with advanced hypertrophic right greater than left facet arthrosis. Mild spinal canal stenosis, severe right and mild to moderate left neural foraminal stenosis. C4-C5: Disc osteophyte complex with bilateral uncovertebral joint hypertrophy and right greater than left facet arthrosis. Mild spinal canal and severe bilateral neural foraminal stenosis. C5-C6: Disc osteophyte complex with bilateral uncovertebral joint hypertrophy and mild facet arthrosis with ligamentum flavum thickening. Moderate spinal canal and severe bilateral neural foraminal stenosis. C6-C7: Disc osteophyte complex with bilateral uncovertebral joint hypertrophy and mild bilateral facet arthrosis. No spinal canal stenosis. Severe bilateral neural foraminal stenosis. C7-T1: Inferiorly migrated right central disc extrusion contributing to mild spinal canal narrowing and indentation/flattening along the right ventral cord. No neural foraminal stenosis. The cervical spinal cord is normal in signal and morphology. No epidural fluid collection, mass, or hematoma. There is mild fatty atrophy of the paraspinal musculature. The flow voids of the major cervical vessels are maintained. The visualized intracranial structures are normal. Susceptibility artifact related to prior median sternotomy. MR/MR cervical spine wo con IMPRESSION: Multilevel cervical spondylosis as described above. Inferiorly migrated right central disc extrusion at C7-T1 contributes to mild spinal canal narrowing and right ventral cord flattening. Moderate C5-C6 and mild C3-C4 and C4-C5 neural foraminal stenosis. No cord compression or cord signal abnormality. Multilevel severe neural foraminal narrowing as above.
== END 2023-03-11 08:38 | disposition home or self-care (01) ==
LOC: HO.MRI 08:37
PROVIDERS: PCP Nurse Practitioner Family; Visit Provider Anesthesiology
DX: M47.812 Spondylosis without myelopathy or radiculopathy, cervical region (principal)
CPT/HCPCS: 72141

== ENCOUNTER 2023-03-29 14:49 | Outpatient (AMB) | payer MEDICARE, SELFPAY ==
--- NOTE | 2023-03-29 14:52 | A.OFFVIS_ITS ---
Intake Vital Signs 03/29/23 15:10 Height 5 ft 10 in Weight 210 lb BMI 30.1 BP 136/70 Blood Pressure Location Lt brachial Position Sitting Respiration 16 Pulse 67 Pulse Source Pulse Oximeter Pulse Oximetry (%) 97 Oxygen Delivery Method Room Air Intake Visit Reasons: MRI FOLLOW UP/RESULTS Allergies Vdoygmt-EXA-BjN Reductase Inhibitor Adverse Reaction (Verified 03/29/23 15:10) Joint Pain HPI HPI Comments History of Present Illness Details Mr. Agee is back in my office with continuing complain on cervicalgia. He completed physical therapy at [facility] in [place], he reports improvement in the pain in the neck while in physical therapy as well as few hours after. He reports that home exercise program he is doing at home is not as effective as physical therapy in the office. He reports that effect this appears after the that. He went for MRI of the cervical spine and the report is as below. There are not much of the changes compared to previous MRI however everything stays significantly affected. See the full report. He reports still progression of the weakness in the right upper extremity. However somehow he reports the weakness in the hand now related to carpal tunnel surgery he had in our orthopedic office. Today he denied connection of the pain in the hand with pain in the neck. I offered him today to refer him to a neurosurgeon, I also offered him interlaminar epidural steroid injection. He is not very sure about injection. He is leaving for [place] soon and he will be thinking about the procedure. If he decides to go forward he will give us a call and we will schedule him for the injection as below. Prior: Very pleasant 77 years old gentleman who presents in my office with complains on pain in the neck as well as pain in the lumbar back. Reports pain in the neck started in 2020 when he fell in his garage. He reports that pain is radiating down to the large shoulder but not below the level of the shoulder. He also reports sensation of pins and needles and numbness in the pinky and ring fingers on the right. He tried physical therapy at that time. He reports minimal improvement with physical therapy. He tried NSAIDs without success, he reports when pain is exacerbated to unbearable level he is being prescribed oxycodone. He tried muscle relaxants which were not effective for control of his pain. He also complains on pain in the lower back across the lumbar spine without radiation. He was operated according to him on his lumbar spine twice. He also received physical therapy for this pain in the past. he had neck steroid injections by they were moderately helpful for his pain but the relief came few months after the injection. His past medical history significant for dizziness history of heart murmur and a history of mitral valve repair not replacement he has medical history of gout/pseudogout he has arthritis and there is suspicion is that he has minimal ascending thoracic aortic aneurysm Past surgical history significant for back surgeries multiple heart 12 years ago repair and hip replacement which was done 12 years ago. He denies smoking cigarettes admits drinking alcohol with meals denies recreat ional drugs. [facility] Medical History (Updated 01/16/23 @ 09:51 by Eran Mascorro MD) Anxiety Gout Erectile dysfunction Aortic insufficiency Yrweyku-et-jfk HTN (hypertension) Thoracic aortic aneurysm Pulmonary nodules Thrombocytopenia CKD (chronic kidney disease) PAD (peripheral artery disease) Tricuspid valve regurgitation Mitral valve regurgitation H/O endocarditis CAD (coronary artery disease) Osteoarthritis HLD (hyperlipidemia) Cervical radiculopathy Surgical History S/P mitral valve repair (~2006) Hx of CABG (~2006) Family History Father No problems noted. Mother No problems noted. 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 Reports pain exacerbation on the right with turning the head to the left. Reports bilateral numbness more on the right and less on the left on the pinky finger and ring finger. Now admits that Valsalva maneuver aggravates his pain in the neck. Lhermitte test and Spurling tests are still negative for pain increase. But there is significant weakness of the muscular sales development representative of the right hand (patient is right handed individual) compared to the left hand sales development representative. Chest Chest palpation & inspection: normal inspection of the chest Cardio Jugular venous distension: no JVD Back/Spine/Pelvis Other: On inspection there is midline scar in the projection of the lumbar spine. The scar is very well-healed no signs of inflammation. Range of motion lumbar spine is not affected. Neuro General: patient oriented x3 Psych Appearance: grossly normal Mental Status: mental status grossly normal Speech and movement: Normal speech and movement present Affect: normal affect Attitude: cooperative Thought process: Normal thought process present Thought content: Normal thought content present Insight: Good insight present (Psych) Judgement: Good judgement present (Psych) Results Reviewed Results Reviewed: MRI cervical spine 03/11/2023. The craniocervical junction is intact. The cervical lordosis is preserved. Trace anterolisthesis at C3-C4 and C4-C5 and trace retrolisthesis at C5-C6. Vertebral body heights are normal without acute compression fracture. No suspicious osseous lesion. Diffuse disc desiccation with severe C6-C7 and moderate to severe C5-C6 disc height loss. Type II Modic endplate change at C6-C7. There are multilevel degenerative changes with level by level detail as follows: C2-C3: Right greater than left facet arthrosis. No spinal canal or neural foraminal stenosis. C3-C4: Disc osteophyte complex and right greater than left uncovertebral joint hypertrophy with advanced hypertrophic right greater than left facet arthrosis. Mild spinal canal stenosis, severe right and mild to moderate left neural foraminal stenosis. C4-C5: Disc osteophyte complex with bilateral uncovertebral joint hypertrophy and right greater than left facet arthrosis. Mild spinal canal and severe bilateral neural foraminal stenosis. C5-C6: Disc osteophyte complex with bilateral uncovertebral joint hypertrophy and mild facet arthrosis with ligamentum flavum thickening. Moderate spinal canal and severe bilateral neural foraminal stenosis. C6-C7: Disc osteophyte complex with bilateral uncovertebral joint hypertrophy and mild bilateral facet arthrosis. No spinal canal stenosis. Severe bilateral neural foraminal stenosis. C7-T1: Inferiorly migrated right central disc extrusion contributing to mild spinal canal narrowing and indentation/flattening along the right ventral cord. No neural foraminal stenosis. The cervical spinal cord is normal in signal and morphology. No epidural fluid collection, mass, or hematoma. There is mild fatty atrophy of the paraspinal musculature. The flow voids of the major cervical vessels are maintained. The visualized intracranial structures are normal. Susceptibility artifact related to prior median sternotomy. MR/MR cervical spine wo con IMPRESSION: Multilevel cervical spondylosis as described above. Inferiorly migrated right central disc extrusion at C7-T1 contributes to mild spinal canal narrowing and right ventral cord flattening. Moderate C5-C6 and mild C3-C4 and C4-C5 neural foraminal stenosis. No cord compression or cord signal abnormality. Multilevel severe neural foraminal narrowing as above. Assessment & Plan Assessment & Plan (1) Cervical radiculopathy: Code(s): M54.12 - Radiculopathy, cervical region Plan: The patient completed physical therapy and reports minimal improvement as above. The MRI was repeated and the results are dictated as above. There is not much of a changes from the MRI 1 year ago at [facility] demonstrated to levels of nerve root compression C5-C6 and C6-C7. I offered him to perform C6-C7 interlaminar epidural steroid injection. He will be thinking about it. I also offered him to receive consult from neurosurgeon. He will go for the consult and report the results to me. If he decides to go for injection he will give us a call and schedule an appointment for injection with me. (2) Chronic pain syndrome: Code(s): G89.4 - Chronic pain syndrome (3) Spondylosis of cervical spine: Code(s): M47.812 - Spondylosis without myelopathy or radiculopathy, cervical region (4) Osteoarthritis cervical spine: Code(s): M47.812 - Spondylosis without myelopathy or radiculopathy, cervical region (5) Postlaminectomy syndrome of lumbar region: Code(s): M96.1 - Postlaminectomy syndrome, not elsewhere classified Orders: Referrals Neurosurgery Referral G89.4 - Chronic pain syndrome, M47.812 - Spondylosis without myelopathy or radiculopathy, cervical region, M54.12 - Radiculopathy, cervical region Patient Instructions: I here by testify that I spent 35 minutes in conversation with this patient as well as evaluation of this patient's diagnostic studies as well as planning this patient future care. Coding Level of Care Code Est Pt Level 4 (66225) Diagnoses Cervical radiculopathy M54.12 Chronic pain syndrome G89.4 Spondylosis of cervical spine M47.812 Osteoarthritis cervical spine M47.812 Postlaminectomy syndrome of lumbar region M96.1
[2023-03-29 15:10] VITALS: BP 136/70; PULSE 67; RESP 16; O2SAT 97; BMI 30.1
== END 2023-03-29 15:35 | disposition home or self-care (01) ==
PROVIDERS: PCP Nurse Practitioner Family; Visit Provider Anesthesiology
DX: M54.12 Radiculopathy, cervical region (principal); G89.4 Chronic pain syndrome; M47.812 Spondylosis without myelopathy or radiculopathy, cervical region; M96.1 Postlaminectomy syndrome, not elsewhere classified
CPT/HCPCS: 99214

== ENCOUNTER → 2023-03-29 14:49 | Outpatient (BNVA) | payer MEDICARE, SELFPAY | PROVIDERS: PCP Nurse Practitioner Family; Visit Provider Anesthesiology | DX: M54.12 Radiculopathy, cervical region (principal); M47.812 Spondylosis without myelopathy or radiculopathy, cervical region; M96.1 Postlaminectomy syndrome, not elsewhere classified; G89.4 Chronic pain syndrome | CPT/HCPCS: 99212 ==

== ENCOUNTER 2023-12-11 10:36 | Outpatient (AMB) | payer MEDICARE, SELFPAY ==
--- NOTE | 2023-12-11 10:38 | A.OFFVIS_ITS ---
Vital Signs 12/11/23 10:41 Height 5 ft 10 in Weight 209 lb 10.554 oz BMI 30.1 BP 124/80 Blood Pressure Location Lt brachial Position Sitting Respiration 16 Pulse 66 Pulse Source Pulse Oximeter Pulse Oximetry (%) 95 Oxygen Delivery Method Room Air Intake Visit Reasons: Gout/CM Intake Note: Patient presents for Gout. Allergies Nizqhbs-MGT-KzD Reductase Inhibitor Adverse Reaction (Verified 12/11/23 10:41) Joint Pain Medication List - Last Reconciled 12/11/23 by Linsey Hester MD allopurinol 300 mg (3 x 100 mg) PO DAILY amlodipine 2.5 mg PO DAILY [aspirin 81 mg PO DAILY] clotrimazole 1% 1 appl topical BID colchicine 0.6 mg PO DAILY fluticasone propionate 50 mcg/actuation intranasal metoprolol tartrate 25 mg PO BID prednisone Three tab once daily for 3 days, then 2 tab once daily for 3 days, then 1 tab daily for 3 days. tadalafil 20 mg PO DIRECTED HPI Comments Details: This is a 77-year-old male with history of gout, pseudogout and osteoarthritis who presents for follow-up. He states that he had a gout flare-up back in April of 2023. He had severe pain affecting his left big toe. He could not not go to the hospital. A physician and the nurse did a home visit. Received a intramuscular shot that helped his pain significantly. Has not had any gout flare-ups since. He remains on allopurinol 200 mg daily and colchicine 0.6 mg daily. States that recently has noticed some drifting to the left. This happens when he walks and even when he is sitting down in bed. He has not had this evaluated. Most recent history by Dr. Xavier 01/2024: The patient returns for evaluation of his gout, osteoarthritis, probable pseudogout, and hand numbness. He does get occasional right knee pain. Some days it is more severe than others. There has been no recent redness or swelling. Today the knee feels fine. He remains on allopurinol 300 mg daily and colchicine 0.6 mg daily. He still is disappointed about his bilateral hand numbness. This is more severe on the right in spite of carpal tunnel and cubital tunnel surgery. He says there still is decreased sensation in the fingers. He also notes decreased hat liner strength. The left hand has similar numbness but it is no where near as severe. He did see pain management but no definitive planned was agreed upon. [facility] Medical History Anxiety Gout Erectile dysfunction Aortic insufficiency Mgtrsjy-ag-fkz HTN (hypertension) Thoracic aortic aneurysm Pulmonary nodules Thrombocytopenia CKD (chronic kidney disease) PAD (peripheral artery disease) Tricuspid valve regurgitation Mitral valve regurgitation H/O endocarditis CAD (coronary artery disease) Osteoarthritis HLD (hyperlipidemia) Cervical radiculopathy Surgical History S/P mitral valve repair (~2006) Hx of CABG (~2006) Family History Father No problems noted. Mother No problems noted. 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 Review of Systems Musc Reports abnormal gait Neuro Reports abnormal gait Physical Exam Vital Signs: Last Vital Signs Pulse 66 12/11/23 10:41 Resp 16 12/11/23 10:41 BP 124/80 12/11/23 10:41 Pulse Ox 95 12/11/23 10:41 Oxygen Delivery Method Room Air 12/11/23 10:41 BMI result Body Mass Index 30.1 Const General: cooperative, healthy appearing and comfortable Nutritional Appearance: overweight Orientation/consciousness: patient oriented x3 Limitations: no limitations HEENT Head: Yes normocephalic and Yes atraumatic Mouth: moist mucous membranes Resp Effort & Inspection: normal respiratory effort and able to speak in complete sentences Skin General skin exam: no rashes or lesions noted Neuro General: patient oriented x3 Extrem Other: Osteoarthritic changes of both hands with no active synovitis Significant bilateral elbow contractures No tophi on ears No knee pain with full flexion-extension Assessment & Plan Assessment & Plan (1) Gout: Comment: Recurrent attacks; + MSU crystals right knee 2014 On/off allopurinol - Restarted 09/2019 Code(s): M10.9 - Gout, unspecified Category: Medical Qualifiers: Gout site: multiple sites Gout etiology: idiopathic Chronicity: chronic Presence of tophus: without tophus Qualified Code(s): M1A.09X0 - Idiopathic chronic gout, multiple sites, without tophus (tophi) Plan: This is a 77-year-old male with gout, pseudogout and generalized osteoarthritis who presents for follow-up. This is his 1st visit with me. He used to follow- up with Dr. Xavier. Over the last year patient had 1 gout flare-up when he was in [place] affecting his left big toe which was treated with an intramuscular steroid shot. Has not had any gout flare-ups since. Remains on allopurinol 200 mg daily and colchicine 0.6 mg daily Continue allopurinol 300 mg daily and colchicine 0.6 mg daily. Refilled Check acid levels today Follow-up in about 9 months (2) Unsteady gait when walking: Code(s): R26.81 - Unsteadiness on feet Category: Medical Plan: Patient has noticed that he drifts to left with walking and even in bed. I suggested neurology evaluation (3) Osteoarthritis of knees, bilateral: Comment: with chondrocalcinosis Code(s): M17.0 - Bilateral primary osteoarthritis of knee Category: Medical Qualifiers: Osteoarthritis type: primary Qualified Code(s): M17.0 - Bilateral primary osteoarthritis of knee Plan I spent 23 minutes reviewing patient's chart, evaluating patient, ordering diagnostic workup, counseling patient and documenting in the chart Orders: Orders Complete Blood Count Auto Diff Today M10.9 - Gout, unspecified Basic Metabolic Panel Today M10.9 - Gout, unspecified Uric Acid Today M10.9 - Gout, unspecified Medications: Refilled colchicine 0.6 mg PO DAILY 90 tabs 1RF M10.9 - Gout, unspecified Coding Level of Care Code Est Pt Level 4 (54729) Diagnoses Idiopathic chronic gout of multiple sites without tophus M1A.09X0 Gout site: multiple sites Gout etiology: idiopathic Chronicity: chronic Presence of tophus: without tophus Unsteady gait when walking R26.81 Primary osteoarthritis of both knees M17.0 Osteoarthritis type: primary
[2023-12-11 10:41] VITALS: BP 124/80; PULSE 66; RESP 16; O2SAT 95; BMI 30.1
== END 2023-12-11 11:06 | disposition home or self-care (01) ==
PROVIDERS: PCP Nurse Practitioner Family; Visit Provider Student in an Organized Health Care Education/Training Program
DX: M1A.09X0 Idiopathic chronic gout, multiple sites, without tophus (tophi) (principal); R26.81 Unsteadiness on feet; M17.0 Bilateral primary osteoarthritis of knee
CPT/HCPCS: 99214

== ENCOUNTER 2023-12-11 11:34 | Outpatient (REF) | payer MEDICARE, SELFPAY ==
[2023-12-11 13:05] LABS: MANUAL DIFF FLAG NO
[2023-12-11 13:26] LABS: Basophils Absolute Auto 0.1 X10*3/uL (0.0-0.2); Basophils Percent Auto 0.7 % (0-2); Eosinophils Absolute Auto 0.3 X10*3/uL (0.0-0.4); Eosinophils Percent Auto 4.3 % (0-4); Hematocrit 41.4 % (42.0-52.0); Hemoglobin 14.2 g/dl (14.0-18.0); Imm Gran Abs Auto 0.11 X10*3/uL (0.00-0.03); Imm Gran Pct Auto 1.5 % (0.0-0.4); Lymphocytes Absolute Auto 1.9 X10*3/uL (1.2-4.9); Lymphocytes Percent Auto 25.3 % (20-40); Mean Corpuscular HGB Conc 34.3 g/dl (31.0-36.0); Mean Corpuscular Volume 93.2 fL (80.0-98.0); Mean Platelet Volume 10.4 fL (9.4-12.4); Monocytes Absolute Auto 0.5 X10*3/uL (0.1-1.2); Neutrophils Absolute Auto 4.6 x10*3/uL (2.0-8.3); Neutrophils Percent Auto 61.2 % (45-73); Platelet Count 133 X10*3/uL (160-400); Red Blood Count 4.44 X10*6/uL (4.60-5.80); Red Cell Distribution Width 12.9 % (11.0-16.0); White Blood Count 7.4 X10*3/uL (4.8-10.8)
[2023-12-11 13:34] LABS: Anion Gap 14 (12-20); Blood Urea Nitrogen 25 mg/dL (9-16); Calcium 9.7 mg/dL (8.4-10.2); Carbon Dioxide 26 mmol/L (22-29); Chloride 106 mmol/L (96-108); Estimated Glomerular Filt Rate > 60; Glucose Random 103 mg/dL (60-115); Potassium 5.1 mmol/L (3.3-5.1); Sodium 141 mmol/L (135-145); Uric Acid 4.4 mg/dL (3.4-7.0)
== END 2023-12-11 11:35 | disposition home or self-care (01) ==
LOC: HO.10HDL 11:34
PROVIDERS: Visit Provider Student in an Organized Health Care Education/Training Program
DX: M1A.09X0 Idiopathic chronic gout, multiple sites, without tophus (tophi) (principal); R26.81 Unsteadiness on feet; M17.0 Bilateral primary osteoarthritis of knee
CPT/HCPCS: 36415; 80048; 84550; 85025; 99212

== ENCOUNTER 2024-10-09 09:27 | Outpatient (REF) | payer MEDICARE, SELFPAY ==
--- NOTE | ~2024-10-09 | XR_ITS ---
CLINICAL HISTORY: M25.552 - Pain in left hip 2 view, pelvis and left hip Comparison: None Findings: Small age indeterminate fractured osteophyte at the left superior acetabulum. Femur is intact. Moderate left hip osteoarthritis. Right hip arthroplasty. No perihardware lucency. Vascular calcifications. Multiple phleboliths in the pelvis. IMPRESSION: 1. Small age indeterminate fractured osteophyte at the left superior acetabulum. 2. Moderate left hip osteoarthritis. This document has been electronically signed by: Gsu Felipe MD on 10/09/2024 21:45:24
--- OUTSIDE RECORDS SUMMARY | 2024-10-10 09:43 | XMS_ITS | Encounter Summary ---
Author Organization [facility] Address [address] [place] [address] Care Team Providers Care Service Provider Name Role Phone Rosalio Posada MD Primary Care Provider Reason for Visit * Reason Onset Date Comments Hospital Follow-up 10/07/2024 Encounter Details Date Type Department Care Team (Late st Contact Info) Description 10/07/2024 Telephone Adult Medicine [facility] [address] [place], [place] [phone] Rosalio Posada MD [address] [place], [place] Hospital Follow-up Social History Tobacco Use [...] appointment needed Hospital patient was treated at: [facility], [facility] Was this only an ER visit or [...] was the injury due to: Not 3rd libertarian related Found one for 10/21/24 but patient would like something sooner , would like to speak to nurse documented in this encounter Plan of Treatment Upcoming Encounters Date Type Department Care Team (Late st Contact Info) Description 10/10/2024 10:30 AM EDT Office Visit Adult Medicine [address] [phone] Rosalio Posada MD [address] [place] [address] 11/07/2024 9:45 AM EDT Office Visit Pulmonolgy - [place] [address] [facility] [address] [place] [phone] Radha Groves NP [address] [facility] [address] [place] [address] 12/19/2024 8:30 AM EDT Office Visit Adult Medicine [address] [phone] Rosalio Posada MD [address] [place] [address] 02/07/2025 8:00 AM EDT Appointment [facility] [address] [place] [phone] 02/07/2025 1:00 PM EDT Appointment [facility] [address] [place] [phone] documented as of this encounter Visit Diagnoses Not on filedocumented in this encounter Care Teams Service Provider Relationship Specialty Start Date End Date Rosalio Posada MD [address] [place] [address] PCP - General 02/23/23 documented as of this encounter
--- OUTSIDE RECORDS SUMMARY | 2024-10-10 09:43 | XMS_ITS ---
Author Name [facility] Organization Unknown History of Medication Use Medication Directions Dispensed Refills Start Date End Date Stat amlodipine 2.5 mg tablet TAKE 1 TABLET BY MOUTH ONCE DAILY active BinaxNOW COVID-19 Ag Self Test kit TEST DIRECTED TODAY active fluticasone propionate 50 mcg/actuation nasal spray,suspension USE 2 SPRAY(S) IN EACH NOSTRIL ONCE DAILY active tadalafil 20 mg tablet TAKE 1 TABLET BY MOUTH ONE HOUR BEFORE DESIRED ACTIVITY DIRECTED TAKE 30 MINS BEFORE ANY MEAL active Problems Problem Status Onset Date Problem Type Date of Resoluti on Source Pigmented skin lesion of uncertain nature active 2023-02-01 ProblemAct ENS_AONECT Encounters Encounter Type Encounter Reason Primary Diagnosis Location Date Ambulatory [facility] 01/31/2023 Ambulatory [facility] 12/22/2022 Ambulatory [facility] 12/22/2022 Ambulatory [facility] 12/22/2022 Ambulatory [facility] 12/22/2022
--- OUTSIDE RECORDS SUMMARY | 2024-10-10 09:43 | XMS_ITS | Clinical Summary ---
Author Organization [facility] Address [address] [place] [address] Phone Care Team Providers Care Bread Racker Name Role Phone Rosalio Posada MD Primary Care Provider Allergies Active Allergy Reactions Criticality Noted Date Comments Ezetimibe Weakness,Nausea And Vomiting 02/20/2012 Xeelchr-Nex-Klc Reductase Inhibitors Unknown High 04/17/2007 Other Reaction(s): [...] BPH (benign prostatic hyperplasia) 10/20/2022 Atrial flutter ([facility] V24, [facility] V28) 2021 Overview (03/06/2024): - Was undergoing [...] Plan: No recurrence PAD (peripheral artery disease) ([facility] V24) Peroneal tendonitis of left lower extremity 09/2020 Overview (03/06/2024): [facility] Chondrocalcinosis of both knees 12/15/2020 Overview (03/06/2024): CPPD crystals left knee 12/15/20 but fluid non-inflammatory Urinary urgency 12/06/2017 Primary thrombocytopenia ([facility] V24, [facility] V 28) 04/03/2017 Pulmonary nodules 02/15/2017 Coronary artery disease invo lving chehalis coronary artery of chehalis heart without angina pectoris 12/26/2016 Overview (03/06/2024): [...] Currently being followed by cardiac surgery at [facility] - Recently had a CT angiography of [...] Assessment & Plan: Continue current amlodipine, metoprolol Kyebjsm-vu-zym 12/01/2014 Obesity (BMI 30-39.9) 12/01/2014 Aortic insufficiency [...] Care Team Description 10/07/2024 Telephone Adult Medicine [address] [address] Rosalio Posada MD [facility] Follow-up 09/27/2024 Telephone Pulmonolgy [facility] [address] [place] [phone] Radha Groves NP Medication Problem 09/18/2024 9:45 AM EDT Office Visit [address] [address] Rosalio Posada MD Essential hypertension (Primary Dx); Coronary artery disease involving chehalis coronary artery of chehalis heart without angina pectoris; PAD (peripheral artery disease) (CMS/HCC V24); Other hyperlipidemia; Primary thrombocytopenia (CMS/HCC V24, CMS/HCC V28); Chronic cough; Bilateral carotid artery stenosis; Aneurysm of ascending aorta without rupture (CMS/HCC V24); Hepatic steatosis 09/02/2024 2:20 PM EDT Consult Pulmonolgy [facility] [address] [place] [phone] Radha Groves NP Chronic cough (Primary Dx); [...] COMMENT: diverticulosis UPPER GASTROINTESTINAL ENDOSCOPY 12/11/2007 PROCEDURE: [facility] UPPER GI ENDOSCOPY PERFORMED; COMMENT: duodenal bx [...] S/p CABG and mitral valve reconstruction at [facility], 04/27 Mitral valve disorders(424.0) 07/28/2005 DX :Mitral [...] kidney disease) stage 3, GFR 30-59 ml/min ([facility] V24, [facility] V28) 10/22/2019 DX:CKD (chronic kidney disea se) stage 3, GFR 30-59 ml/min ([facility]) History of total hip replace ment, right 01/13/2022 DX:History of total hip repl acement, right CKD (chronic kidney disease) stage 3, GFR 30-59 ml/min ([facility] V24, [facility] V28) 10/22/2019 Family History Medical History Relation [...] 10:30 AM EDT Office Visit Adult Medicine [address] [address] Rosalio Posada MD [address] [place] [address] 11/07/2024 9:45 AM EDT Office Visit Pulmonolgy - [place] [address] [address] Radha Groves, TOM [address] [address] 12/19/2024 8:30 AM EDT Office Visit Adult Medicine [facility] [address] [place] [address] Rosalio Posada MD [address] [place] [address] 02/07/2025 8:00 AM EDT Appointment [facility] [address] [place] [phone] 02/07/2025 1:00 PM EDT Appointment [facility] [address] [place] [phone] Health Maintenance Due Date Last Done Comments [...] mg/dL LAB CHEMISTRY METHOD 05/08/2024 10:23 AM [facility] Triglycerides 94 0 - 150 mg/dL LAB CHEMISTRY METHOD 05/08/2024 10:23 AM [facility] HDL 48 >=40 mg/dL LAB CHEMISTRY METHOD 05/08/2024 10:23 AM [facility] LDL Calculated 111(H) 0 - 100 mg/dL LAB CHEMISTRY METHOD 05/08/2024 10:23 AM [facility] VLDL Cholesterol Kevin 18.8 mg/dL LAB CHEMISTRY METHOD 05/08/2024 10:23 AM [facility] Non HDL Chol. (LDL+VLDL) 130 <145 mg/dL LAB CHEMISTRY METHOD 05/08/2024 10:23 AM [facility] Chol/HDL Ratio 3.7 0.0 - 4.4 LAB CHEMISTRY METHOD 05/08/2024 10:23 AM [facility] Blood Venous blood specimen / Unknown Venipuncture / Unknown 05/08/2024 8:52 AM EST 05/08/2024 8:52 AM EST us Rosalio Posada MD LAB BLOOD ORDERABLES F inal Result [facility] [address] [place] [address], * (ABNORMAL) Basic metabolic panel (05/08/2024 8:52 AM EST) Sodium 142 133 - 145 mmol/L LAB CHEMISTRY METHOD 05/08/2024 10:19 AM [facility] Potassium 4.4 3.5 - 5.5 mmol/L LAB CHEMISTRY METHOD 05/08/2024 10:19 AM [facility] Chloride 107 96 - 110 mmol/L LAB CHEMISTRY METHOD 05/08/2024 10:19 AM [facility] CO2 28 21 - 32 mmol/L LAB CHEMISTRY METHOD 05/08/2024 10:19 AM [facility] Anion Gap 7 3 - 11 LAB CHEMISTRY METHOD 05/08/2024 10:19 AM [facility] Glucose 109(H) 70 - 100 mg/dL LAB CHEMISTRY METHOD 05/08/2024 10:19 AM [facility] BUN 20 5 - 25 mg/dL LAB CHEMISTRY METHOD 05/08/2024 10:19 AM [facility] Creatinine 1.18 0.70 - 1.30 mg/dL LAB CHEMISTRY METHOD 05/08/2024 10:19 AM [facility] eGFR 63 >=60 mL/min/1. 73m2 LAB CHEMISTRY METHOD 05/08/2024 10:19 AM [facility] Comment:Calculation based on the??Chronic Kidney Disease Epidemiology Collaboration (CKD-EPI) equation refit??without adjustment for race. BUN/Creatinine Ratio 16.9 LAB CHEMISTRY METHOD 05/08/2024 10:19 AM [facility] Calcium 9.7 8.5 - 10.5 mg/dL LAB CHEMISTRY METHOD 05/08/2024 10:19 AM [facility] Blood Venous blood specimen / Unknown Venipuncture / Unknown 05/08/2024 8:52 AM EST 05/08/2024 8:52 AM EST us Rosalio Posada MD LAB BLOOD ORDERABLES F inal Result [facility] [address] [place] [address], [place] [phone] * Falls Risk Assessment (10/19/2023) Falls Risk Assessment Abstracted Avtar Card MD HEALTH MAINTENANCE Final Result * Depression Screening (10/19/2023) Depression Screening Abstracted us Historical Provider HEALTH MAINTENANCE Final Result * Colonoscopy (03/28/2017) Colonoscopy Negative, Abstracted Comment:Polyps are benign, p lease plan for colonoscopy again in 5 years. Anatomical Region Laterality Modality Other [facility] Provider HEALTH MAINTENANCE Final Result * Hepatitis C Screening (01/10/2007) Pathologist [facility] Hepatitis C Screening Abstracted [facility] Provider HEALTH MAINTENANCE Final Result from Last 3 Months or Most Recently Relevant to Health Maintenance Insurance MEDICARE [facility] Care Teams Bread Racker Relationship Specialty Start Date End Date Rosalio Posada MD [address] [place] [address] PCP - General 02/23/23
--- OUTSIDE RECORDS SUMMARY | 2024-10-10 09:44 | XMS_ITS | Clinical Summary ---
Author Organization [facility] Address [address] [place] [address] Care Team Providers Care Welding Engineer Name Role Phone Abiodun Godoy MD Primary Care Provider [phone] Allergies Active Allergy Reactions Criticality Noted Date [...] age to complete this topic Care Teams Welding Engineer Relationship Specialty Start Date End Date Abiodun Godoy MD [address] [place] [address] PCP - General Nursing Program Chair 12/22/20
--- OUTSIDE RECORDS SUMMARY | 2024-10-10 09:44 | XMS_ITS | Patient Health Record ---
Author Organization [facility] Address [address] [place] [address] Care Team Providers Care Bi Specialist Name Role Phone Gus Lowe Primary Care Provider Unavailabl e Allergies Allergen (clinical drug ingredient) Drug/Non Drug Allergy documented on EMR Reaction Allergy Type Onset Date Status ezetimibe Zetia Unknown Drug Allergy Active Substance with 8-dnmegjp-7-methylgluta ryl-coenzyme A reductase inhibitor mechanism of action [...] Problem Status W/U Status Risk Notes Problem [id number] Hallux rigidus, right foot (M20.21) Active confirmed Problem [id number] 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) Active confirmed Problem [id number] Neuritis of left lower extremity (G57.92) Active confirmed Problem Chondrocalcinosis (766285283) 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
== END 2024-10-09 09:28 | disposition home or self-care (01) ==
LOC: HO.HOSX 09:27
PROVIDERS: Visit Provider Orthopaedic Surgery
DX: M25.552 Pain in left hip (principal); M17.12 Unilateral primary osteoarthritis, left knee; M70.62 Trochanteric bursitis, left hip; Z96.641 Presence of right artificial hip joint
CPT/HCPCS: 73502; 99202

== ENCOUNTER 2024-10-09 13:50 | Outpatient (AMB) | payer MEDICARE, SELFPAY ==
--- NOTE | 2024-10-09 14:17 | MHC.OFFVIS ---
Vital Signs 10/09/24 14:34 Height 5 ft 10 in Weight 209 lb BMI 30.0 Intake Visit Reasons: Left hip pain Intake Note: Meggan is a 78 year old male who presents with complaints of intermittent pain along the lateral aspect of his left hip. The patient did undergo right total hip replacement several years ago. He denies any pain in his right hip. He has tried Tylenol which gives him mild relief. He does have a history of gout. Allergies Cfgxbtb-KED-YgX Reductase Inhibitor Adverse Reaction (Verified 10/09/24 14:31) Joint Pain Medication List - Last Reconciled 10/09/24 by Jeremie Puentes MD allopurinol 300 mg (3 x 100 mg) PO DAILY amlodipine 2.5 mg PO DAILY [aspirin 81 mg PO DAILY] colchicine 0.6 mg PO DAILY famotidine 20 mg PO BID fluticasone propionate 50 mcg/actuation intranasal metoprolol tartrate 25 mg PO BID sucralfate 1 g PO BID tadalafil 20 mg PO DIRECTED [facility] Medical History Anxiety Gout Erectile dysfunction Aortic insufficiency Ospwbuv-jm-bea HTN (hypertension) Thoracic aortic aneurysm Pulmonary nodules Thrombocytopenia CKD (chronic kidney disease) PAD (peripheral artery disease) Tricuspid valve regurgitation Mitral valve regurgitation H/O endocarditis CAD (coronary artery disease) Osteoarthritis HLD (hyperlipidemia) Cervical radiculopathy Surgical History S/P mitral valve repair (~2006) Hx of CABG (~2006) Family History Father No problems noted. Mother No problems noted. 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 Physical Exam Vital Signs: BMI result Body Mass Index 30.0 Const Other: Well-nourished well-developed very friendly male awake alert and oriented x3 in no acute distress Extrem Other: Right hip examination shows that the surgical incision is well healed, no erythema, minimal discomfort with range of motion, no tenderness over his bursa Left hip examination shows slightly decreased range of motion when compared to his right hip, mild discomfort with range of motion, tenderness over his bursa, no overlying skin lesions Results Reviewed Results Reviewed: X-rays of the patient's right hip show a total hip arthroplasty in good position with no signs of loosening, no acute bony abnormalities X-rays of the patient's left hip show mild to moderate diffuse joint space narrowing, no acute bony abnormalities Assessment & Plan Assessment & Plan (1) Left hip pain: Code(s): M25.552 - Pain in left hip Category: Medical (2) Trochanteric bursitis, left hip: Code(s): M70.62 - Trochanteric bursitis, left hip Category: Medical Plan Mr. Agee presents with intermittent discomfort along the lateral aspect of his left hip due to greater trochanteric bursitis. I had a lengthy discussion with the patient regarding the treatment options. We will hold off on a cortisone injection for now. I did give him a prescription for a Medrol Dosepak. He will contact me prior to his follow-up appointment in 4-6 weeks should his symptoms worsen in any way. Feel free to call me at any time should questions regarding his orthopedic management arise. I spent 20 minutes in reviewing the patient's records and imaging studies, seeing the patient and documenting in the medical record. Orders: Orders XR hip LT min 2V 10/09/24 M25.552 - Pain in left hip Medications: New methylprednisolone (Medrol (Conor)) PO PER PKG DIR 21 ea 0RF Coding Level of Care Code New Pt Level 3 (64082) Complex EM visit Add On G2211 Diagnoses Left hip pain M25.552 Trochanteric bursitis, left hip M70.62
--- OUTSIDE RECORDS SUMMARY | 2024-10-09 14:22 | XMS_ITS | Encounter Summary ---
Author Organization [facility] Address [address] [place] [address] Care Team Providers Care Mold Car Pusher Name Role Phone Rosalio Posada MD Primary Care Provider Reason for Visit * Reason Onset Date Comments Medication Problem 09/27/2024 Encounter Details Date Type Department Care Team ([facility] st Contact Info) Description 09/27/2024 [facility] [address] [place] [phone] Radha Groves NP [address] [place] [address] Medication Problem Social History Tobacco Use Types Packs/Day Years Used Date Smoking Tobacco: Never Smokeless Tobacco: Never Alcohol Use Standard Drinks/Week Comments Yes 0 (1 standard drink = 0.6 oz pur e alcohol) Sex and Gender Information Value Date Recorded Sex Assigned at Not on file Legal Sex Male 2:57 AM EST Gender Identity Not on file Sexual Orientation Not on file documented as of this encounter Progress Notes * Jesus Thayer MA - 10/01/2024 10:03 AM EDT FYI * Shantell Aguilar - 09/27/2024 9:55 AM EDT Called patient to confirm PFT appointment. Patient stated that he didn't picked up the Zyrtec when prescribed as the insurance doesn't want to cover it and it cost $50, he can't afford it. FYI. documented in this encounter Plan of Treatment Upcoming Encounters Date Type Department Care Team (Late st Contact Info) Description 10/10/2024 10:30 AM EDT Office Visit Adult Medicine [facility] [address] [place] [address] Rosalio Posada MD [address] [place] [address] 11/07/2024 9:45 AM EDT Office Visit Pulmonolgy - [place] [address] [phone] Radha Groves NP [address] [address] 12/19/2024 8:30 AM EDT Office Visit Adult [address] [phone] Rosalio Posada MD [address] [place] [address] 02/07/2025 8:00 AM EDT Appointment [facility] Ultras[address] [place] [phone] 02/07/2025 1:00 PM EDT Appointment [facility] [address] [place] [phone] documented as of this encounter Visit Diagnoses Not on filedocumented in this encounter Care Teams Mold Car Pusher Relationship Specialty Start Date End Date Rosalio Posada MD NPI: [id number] [place] [id number] PCP - General 02/23/23 documented as of this encounter
--- OUTSIDE RECORDS SUMMARY | 2024-10-09 14:22 | XMS_ITS | Encounter Summary ---
Author Organization [facility] Address [address] [place] [address] Care Team Providers Care Asbestos Pipe Supervisor Name Role Phone Rosalio Posada MD Primary Care Provider Reason for Visit * Reason Onset Date Comments Hospital Follow-up 10/07/2024 Encounter Details Date Type Department Care Team (Late st Contact Info) Description 10/07/[address] [facility] [address] [place], [place] [phone] Rosalio Posada MD [address] [place], [place] Hospital Follow-up Social History Tobacco Use Types Packs/Day Years [...] as of this encounter Progress Notes * Renee Lindsey RN - 10/07/2024 1:48 PM EDT Scheduled follow up for 10/10 at 10:15 with PCP * Palomo Sissy - 10/07/2024 8:48 AM EDT Hospital/ER follow up appointment needed Hospital patient was treated at: [facility], [facility] Was this only an ER visit or was the patient admitted to the hospital? ER Visit only Date of visit if ER visit only: 10/05/24 If patient was admitted what was the date of discharge? Reason/diagnosis for visit or stay: Heart Burn and breathing problems When was the patient told to follow up? Within 1 week Was visit or stay related to an injury? If yes, what was the date of injury (DOI)? If yes, was the injury due to: Not 3rd constitution party related Found one for 10/21/24 but patient would like something sooner , would like to speak to nurse documented in this encounter Plan of Treatment Upcoming Encounters Date Type Department Care Team (Late st Contact Info) Description 10/10/2024 10:30 AM EDT Office Visit Adult Medicine [address] [phone] Rosalio Posada MD [address] [place] [address] 11/07/2024 9:45 AM EDT Office Visit Pulmonolgy - [place] [address] [place] [phone] Radha Groves NP [address] [facility] [address] [place] [address] 12/19/2024 8:30 AM EDT Office Visit Adult Medicine [address] [phone] Rosalio Posada MD [address] [place] [address] 02/07/2025 8:00 AM EDT Appointment [facility] Ultrasound [address] [place] [phone] 02/07/2025 1:00 PM EDT Appointment [facility] Ultrasound [address] [place] [phone] documented as of this encounter Visit Diagnoses Not on filedocumented in this encounter Care Teams Asbestos Pipe Supervisor Relationship Specialty Start Date End Date Rosalio Posada MD [address] [place] [address] PCP - General 02/23/23 documented as of this encounter
--- OUTSIDE RECORDS SUMMARY | 2024-10-09 14:22 | XMS_ITS | Clinical Summary ---
Author Organization [facility] Address [address] [place] [address] Phone Care Team Providers Care Strap Stitcher Name Role Phone Rosalio Posada MD Primary Care Provider Allergies Active Allergy Reactions Criticality Noted Date Comments Ezetimibe Weakness,Nausea And Vomiting 02/20/2012 Uqthuvv-Wrf-Oob Reductase Inhibitors Unknown High 04/17/2007 Other Reaction(s): Myalgia and Joint Pain Other reaction(s): Other (See Comments) muscle aches Other Reaction(s): Muscle Pain/Discomfort Other reaction(s): Other (See Comments) muscle aches Medications loratadine (CLARITIN) 10 mg tablet Take 1 Tablet by mouth daily. Active allopurinoL (ZYLOPRIM) 100 mg tablet TAKE 3 TABLETS BY MOUTH ONCE DAILY 2 Active aspirin 81 mg EC tablet Take 1 Tablet by mouth daily. 2 Active multivitamin with minerals (BIOSUPP ORAL) Take by mouth. Active omeprazole OTC (PriLOSEC OTC) 20 mg EC tablet Take 1 tablet (20 mg total) by mouth 1 (one) time each day. Do not crush, chew, or split. 90 tablet 1 4 Active amLODIPine (NORVASC) 2.5 mg tablet Take 1 tablet (2.5 mg total) by mouth 1 (one) time each day. 90 tablet 5 Active colchicine (COLCRYS) 0.6 mg tablet Take 1 tablet (0.6 mg total) by mouth 1 (one) time each day. 90 tablet 1 5 Active metoprolol tartrate (LOPRESSOR) 25 mg tablet Take 1 tablet (25 mg total) by mouth 2 (two) times a day. 180 tablet 1 5 Active cetirizine (ZyrTEC) 10 mg tabletIndicati ons:Chronic cough Take 1 tablet (10 mg total) by mouth 1 (one) time each day. 30 each 11 5 09/03/19 26 Active fluticasone propionate (FLONASE) 50 mcg/actuation nasal sprayIndicatio ns:Chronic cough,Seasonal allergies Administer 2 sprays into each nostril 1 (one) time each day for 14 days. Shake gently. Before first use, prime pump. After use, clean tip and replace cap. 16 g 1 5 Active Breyna 160-4.5 mcg/actuation inhalerIndicat ions:Chronic cough,Seasonal allergies Inhale 1 puff by mouth 2 (two) times a day. Rinse mouth with water after use to reduce aftertaste and incidence of candidiasis. Do not swallow. 10.3 each 3 5 09/19/19 25 Discontinu ed(Patient Discharge) Active Problems Problem Noted Date Diagnosed Date Hepatic steatosis 04/22/2024 Postural lightheadedness 02/07/2024 Overview (03/06/2024): Last Assessment & Plan: 3 episodes occurring a week ago without any recurrence. From his history, it was probably related to some sort of transient viral syndrome that he has since recovered from. I asked him to look out for future symptoms and seek emergent medical attention should they be severe. He verbalized understanding of this. Chronic cough 01/10/2023 Overview (03/06/2024): Last Assessment & Plan: 77-year-old man who developed cough and mild obstruction with symptoms of wheezing. The cough has now disappeared. Most likely this was the result of her reactive airway disease due to respiratory infection. Given that his cough had subsided I explained him that no need for continue using Benadryl or Flovent. He also has GERD and this may have complicating his clinical picture. He should continue following with his primary care physician. BPH (benign prostatic hyperplasia) 10/20/2022 Atrial flutter ([facility] V24, [facility] V28) 2021 Overview (03/06/2024): - Was undergoing carpal tunnel release surgery when he was noted to go into a rapid atrial flutter - Status post cavotricuspid isthmus ablation procedure for typical flutter by Dr. Gomez on 06/25/2021 - Apparently had a left atrial appendage ligation during the time of his mitral surgery so there was question of whether or not he should be on anticoagulation post ablation-however after review with Dr. Gomez during his last visit, it was decided that he could come off of his anticoagulation Last Assessment & Plan: No recurrence PAD (peripheral artery disease) ([facility] V24) Peroneal tendonitis of left lower extremity 09/2020 Overview (03/06/2024): [facility] Chondrocalcinosis of both knees 12/15/2020 Overview (03/06/2024): CPPD crystals left knee 12/15/20 but fluid non-inflammatory Urinary urgency 12/06/2017 Primary thrombocytopenia ([facility] V24, [facility] V 28) 04/03/2017 Pulmonary nodules 02/15/2017 Coronary artery disease invo lving hopi coronary artery of hopi heart without angina pectoris 12/26/2016 Overview (03/06/2024): -Status post CABG with vein graft to the RCA, vein graft to the R PLV, OROZCO to the LAD in 2006 along with mitral valve surgery -Most recent echocardiogram on 12/31/2021 showed mild, concentric left ventricular hypertrophy with normal LV cavity size and systolic function, normal regional wall motion with an ejection fraction 55 to 60%, paradoxic septal motion in keeping with prior cardiac surgery, severe left atrial enlargement, normal RV size and systolic function, status post mitral valve ring annuloplasty repair with only trace residual mitral regurgitation and a well-seated ring with physiologic gradients, mild, eccentric aortic insufficiency, normal pulmonary artery systolic pressure, dilated aortic root at 4.6 cm, ascending aorta at 4.6 cm, transverse aorta 3.9 cm, severe left atrial enlargement-compared with prior echo from February 2020, ascending aorta is dilated from around 4.3 to 4.4 cm to 4.6 cm and the sinus of Valsalva may have also grown slightly though I cannot make exact measurements because I am unable to remeasure on the previous study, all other findings are stable Last Assessment & Plan: No recurrent anginal symptoms, continue baby aspirin, patient is intolerant of statins and ezetimibe but keeps his lipids reasonably controlled via diet and a dietary supplement that he uses. Most recent lipid profile indicates worsening and LDL control. I will follow-up on next years numbers. Will continue to address this at future visits. Patient has not been interested in statin use after multiple conversations in the past. Thoracic aortic aneurysm without rupture (CMS/HC C V24) 05/17/2016 Overview (03/06/2024): - Currently being followed by cardiac surgery at [facility] - Recently had a CT angiography of the chest in October 2022 showing the ascending aorta at 4.7 x 4.5 cm cm at the level of the right main pulmonary artery, 4.5 x 4.3 x 3.9 cm at the sinus of Valsalva-this was stable compared with prior CT scan in March 2022 and August 2017 Last Assessment & Plan: Update surveillance echo as above. Essential hypertension 03/09/2016 Overview (03/06/2024): Last Assessment & Plan: Continue current amlodipine, metoprolol [id number] 12/01/2014 Obesity (BMI 30-39.9) 12/01/2014 Aortic insufficiency 10/03/2014 Erectile dysfunction 09/03/2012 Gout 10/27/2011 Overview (03/06/2024): Recurrent attacks; + MSU crystals right knee 2014 On/off allopurinol - Restarted 09/2019 Osteoarthritis 11/03/2010 Overview (03/06/2024): S/p right THR 09/2011--Dr Puentes Several joints Radiculitis, lumbosacral 01/14/2010 Overview (03/06/2024): S/p L4-[address] Garcia 04/2011 Angioma 12/20/2007 Overview (03/06/2024): Small duodenal angioma identified at upper GI endoscopy 12/11/2007. Melena 12/11/2007 Overview (03/06/2024): EGD+bx 12/11/2007:H. Pylori negative, small duodenal angioma. Clostridium difficile colitis 02/23/2006 Overview (03/06/2024): 11/24 Anxiety 07/28/2005 Hyperlipidemia 07/28/2005 Overview (03/06/2024): -Intolerant to many different statins and Zetia Last Assessment & Plan: See plan under CAD section. 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 I will order one first available however the valve sounds great by exam. Agree with antibiotics prior to dental procedures especially given a history of prior endocarditis. Will plan to repeat surveillance imaging every other year or with change in exam or symptoms. Resolved Problems Problem Noted Date Diagnosed Date Resolved Date CKD (chronic kidney disease) stage 3, GFR 30-59 ml/min (CMS/HCC V24, CMS/HCC V28) 10/22/2019 04/22/2024 Encounters Date Type Department Care Team Description 10/07/2024 Telephone Adult Medicine [address] [phone] [facility] Follow-up 09/27/2024 Telephone Pulmonolgy [facility] [address] [place] [phone] Radha Groves NP Medication Problem 09/18/2024 9:45 AM EDT Office Visit [address] [phone] Rosalio Posada MD Essential hypertension (Primary Dx); Coronary artery disease involving hopi coronary artery of hopi heart without angina pectoris; PAD (peripheral artery disease) (CMS/HCC V24); Other hyperlipidemia; Primary thrombocytopenia (CMS/HCC V24, CMS/HCC V28); Chronic cough; Bilateral carotid artery stenosis; Aneurysm of ascending aorta without rupture (CMS/HCC V24); Hepatic steatosis 09/02/2024 2:20 PM EDT Consult Pulmonolgy [facility] [address] [place] [phone] Radha Groves NP Chronic cough (Primary Dx); Seasonal allergies; Elevated diaphragm from Last 3 Months Immunizations Name Administration Dates Next Due Influenza Quadravalent, MDCK , 0.5ml, preservative free (Flucelvax) 6mo and older 04/06/2018 Influenza trivalent, 0.5mL ( Fluad) 65yo and older 02/05/2021,02/15/2017 Influenza trivalent, 0.5mL, preservative free (Fluarix; FluLaval; Fluzone) ages 6mo and older (Afluria) 3 years and older 03/09/2016,02/25/2015,02/21/2014,02/22,02/20/2012,01/26/2011 Influenza, Unspecified 02/08/2024,2022,03/17/2022,02/19 Pneumococcal conjugate 13 va lent (Prevnar 13, PCV13) 2mo and older 03/09/2016 Pneumococcal polysaccharide 23 valent (Pneumovax 23) 2yo and older 03/24/2011 Td Tetanus diptheria (Tdvax) 7yo and older 01/12/2021 Td, Unspecified 08/24/2004 Tdap Tetanus diptheria acell ular pertussis (Boostrix; Adacel) 7yo and older 05/03/2013 Surgical History Surgery Date Site/Laterality Comments COLONOSCOPY 01/03/2003 PROCEDURE: HISTORICAL COLONOSCOPY; COMMENT: diverticulosis CHOLECYSTECTOMY 03/2015 PROCEDURE: LAPAROSCOPY, CHOLECYSTECTOMY COLONOSCOPY 02/05/2008 PROCEDURE: HISTORICAL COLONOSCOPY; COMMENT: diverticulosis UPPER GASTROINTESTINAL ENDOSCOPY 12/11/2007 PROCEDURE: NE UPPER GI ENDOSCOPY PERFORMED; COMMENT: duodenal bx and DAISY: H. pylori negative; small duodenal angioma. COLONOSCOPY 03/28/2017 PROCEDURE: HISTORICAL COLONOSCOPY; COMMENT: Diverticulosis; 6 mm polyps ? 2 : tubular adenomas. HIP ARTHROPLASTY 2011 Right PROCEDURE: HISTORICAL HIP REPLACEMENT Medical History Medical History Date Comments Unspecified essential hypertension DX:Unspecified essential hypertension Cervicalgia 09/15/2005 DX:Cervicalgia Endocarditis in diseases cla ssified elsewhere 07/28/2005 DX:Endocarditis in diseases classified elsewhere Other and unspecified hyperlipidemia 07/28/2005 DX:Other and unspecified hyperlipidemia Screening examination for pu lmonary tuberculosis 07/28/2005 DX:Screening examination for pulmonary tuberculosis Essential hypertension, benign 07/28/2005 D X:Essential hypertension, benign Anxiety state, unspecified 07/28/2005 DX:An xiety state, unspecified Impaired fasting glucose 07/28/2005 DX:Impa ired fasting glucose Melena 12/11/2007 DX:Melena; COMME NT: EGD+bx 12/11/2007: H. pylori negative; small duodenal angioma. Angioma 12/20/2007 DX:Angioma; COMM ENT: Small duodenal angioma identified at upper GI endoscopy 12/11/2007. CAD (coronary artery disease) 05/02/2007 DX :CAD (coronary artery disease); COMMENT: S/p CABG and mitral valve reconstruction at [facility], 04/27 Mitral valve disorders(424.0) 07/28/2005 DX :Mitral valve disorders(424.0); COMMENT: S/p MVR 04/27 Diverticulosis of colon (wit hout mention of hemorrhage) 12/01/2005 DX:Diverticulosis of colon ( without mention of hemorrhage); COMMENT: Colonoscopy [address] Vaca revealed sigmoid diverticulosis. Performed for evaluation of small volume lower GI tract bleeding. History of chronic minor hematochezia since 1991. Negative colonoscopy 02/05/2008, no colon cancer screening needed for 10 years. 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 CKD (chronic kidney disease) stage 3, GFR 30-59 ml/min ([facility] V24, [facility] V28) 10/22/2019 DX:CKD (chronic kidney disea se) stage 3, GFR 30-59 ml/min ([facility]) History of total hip replace ment, right 01/13/2022 DX:History of total hip repl acement, right CKD (chronic kidney disease) stage 3, GFR 30-59 ml/min ([facility] V24, [facility] V28) 10/22/2019 Family History Medical History Relation Name Comments Arthritis Daughter hx of SLE Colon cancer Uncle Maternal uncle diagnosed with colon cancer in his 50s. Relation Name Status Comments Daughter Uncle Social History Tobacco Use Types Packs/Day Years Used Date Smoking Tobacco: Never Smokeless Tobacco: Never Tobacco Cessation:Counseling Given: Not Answered Alcohol Use Standard Drinks/Week Comments Yes 0 (1 standard drink = 0.6 oz pur e alcohol) Sex and Gender Information Value Date Recorded Sex Assigned at Not on file Legal Sex Male 2:57 AM EST Gender Identity Not on file Sexual Orientation Not on file Obstetrics History Last Filed Vital Signs Vital Sign Reading Time Taken Comments Blood Pressure 130/60 09/18/2024 9:52 AM EDT Pulse 62 09/18/2024 9:52 AM EDT Temperature 36.6 ??C (97.8 ??F) 09/18/2024 9:52 AM ED T Respiratory Rate 16 09/18/2024 9:52 AM EDT Oxygen Saturation 96% 09/18/2024 9:52 AM EDT Inhaled Oxygen Concentration - - Weight 95.7 kg (211 lb) 09/18/2024 9:52 AM EDT Height 179.1 cm (5' 10.5 ) 09/18/2024 9:52 AM ED T Body Mass Index 29.85 09/18/2024 9:52 AM EDT Plan of Treatment Upcoming Encounters Date Type Department Care Team (Late st Contact Info) Description 10/10/2024 10:30 AM EDT Office Visit Adult Medicine [address] [phone] Rosalio Posada MD [address] [place] [address] 11/07/2024 9:45 AM EDT Office Visit Pulmonolgy - [place] [address] [phone] Radha Groves, TOM [address] [address] 12/19/2024 8:30 AM EDT Office Visit Adult Medicine [facility] [address] [place] [address] Rosalio Posada MD [address] [place] [address] 02/07/2025 8:00 AM EDT Appointment [facility] Ultrasound [address] [place] [phone] 02/07/2025 1:00 PM EDT Appointment [facility] Ultrasound [address] [place] [phone] Health Maintenance Due Date Last Done Comments Hepatitis B Vaccines (1 of 3 - Risk 3-dose series) 2004 RSV Immunization Adult Patients (1 - 1-dose 75+ series) 12/30/2019 COVID-19 Vaccine (2 - Moderna risk series) 05/06/2021 04/08/2021 Social Influencers of Health Screening 04/30/2022 Depression Screening 10/18/2024 10/19/2023 Falls Risk Assessment 10/18/2024 10/19/2023 Medicare Annual Wellness Visit 10/18/2024 10/19/2023 Hypertension/CHF/CAD Annual BMP Blood Test 05/08/2025 05/08/2024, 10/20/2023, 10/20/2023 Cholesterol Screening (Lipid Panel) 05/08/2029 05/08/2024, 10/20/2023, 10/20/2023 DTaP,Tdap,and Td Vaccines (4 - Td or Tdap) 01/12/2031 01/12/2021, 05/03/2013, 08/24/2004 Hepatitis C Screening Completed 01/10/2007 Colorectal Cancer Screening: Colonoscopy Discontinued 03/28/2017 Pneumococcal Vaccine: 50+ Years Completed 02/03/2020, 03/09/2016, 03/30/2015, Additional history exists Zoster Vaccines Completed 03/16/2023, 11/26/2022 Influenza Vaccine Completed 02/08/2024, , 03/17/2022, Additional history exists HIB Vaccines Aged Out No longer eligi ble based on patient's age to complete this topic HPV Vaccines Aged Out No longer eligi ble based on patient's age to complete this topic Hepatitis A Vaccines Discontinued IPV Vaccines Aged Out No longer eligi ble based on patient's age to complete this topic MMR Vaccines Aged Out No longer eligi ble based on patient's age to complete this topic Meningococcal ACWY Vaccine Aged Out N o longer eligible based on patient's age to complete this topic Meningococcal B Vaccine Aged Out No l onger eligible based on patient's age to complete this topic RSV Immunization Patients Under 20 months Aged Out No longer eligible based on patient's age to complete this topic Varicella Vaccines Aged Out No longer eligible based on patient's age to complete this topic Procedures Procedure Name Priority Date/Time Associated Diagnosis Comments BASIC METABOLIC PANEL Routine 05/08/2024 8:52 AM EST Essential hypertension LIPID PANEL WITH REFLEX TO DIRECT LDL Routine 05/08/2024 8:52 AM EST Other hyperlipidemia DEPRESSION SCREENING Routine 10/19/2023 FALLS RISK ASSESSMENT Routine 10/19/2023 COLONOSCOPY Routine 03/28/2017 HEPATITIS C SCREENING Routine 01/10/2007 from Last 3 Months or Most Recently Relevant to Health Maintenance Results * (ABNORMAL) Lipid panel with reflex to direct LDL (05/08/2024 8:52 AM EST) Cholesterol 178 0 - 200 mg/dL LAB CHEMISTRY METHOD 05/08/2024 10:23 AM [facility] Triglycerides 94 0 - 150 mg/dL LAB CHEMISTRY METHOD 05/08/2024 10:23 AM [facility] HDL 48 >=40 mg/dL LAB CHEMISTRY METHOD 05/08/2024 10:23 AM [facility] LDL Calculated 111(H) 0 - 100 mg/dL LAB CHEMISTRY METHOD 05/08/2024 10:23 AM [facility] VLDL Cholesterol Kevin 18.8 mg/dL LAB CHEMISTRY METHOD 05/08/2024 10:23 AM [facility] Non HDL Chol. (LDL+VLDL) 130 <145 mg/dL LAB CHEMISTRY METHOD 05/08/2024 10:23 AM [facility] Chol/HDL Ratio 3.7 0.0 - 4.4 LAB CHEMISTRY METHOD 05/08/2024 10:23 AM [facility] Blood Venous blood specimen / Unknown Venipuncture / Unknown 05/08/2024 8:52 AM EST 05/08/2024 8:52 AM EST us Rosalio Posada MD LAB BLOOD ORDERABLES F inal Result [facility] [address] [place] [address], * (ABNORMAL) Basic metabolic panel (05/08/2024 8:52 AM EST) Sodium 142 133 - 145 mmol/L LAB CHEMISTRY METHOD 05/08/2024 10:19 AM [facility] Potassium 4.4 3.5 - 5.5 mmol/L LAB CHEMISTRY METHOD 05/08/2024 10:19 AM [facility] Chloride 107 96 - 110 mmol/L LAB CHEMISTRY METHOD 05/08/2024 10:19 AM [facility] CO2 28 21 - 32 mmol/L LAB CHEMISTRY METHOD 05/08/2024 10:19 AM [facility] Anion Gap 7 3 - 11 LAB CHEMISTRY METHOD 05/08/2024 10:19 AM [facility] Glucose 109(H) 70 - 100 mg/dL LAB CHEMISTRY METHOD 05/08/2024 10:19 AM [facility] BUN 20 5 - 25 mg/dL LAB CHEMISTRY METHOD 05/08/2024 10:19 AM [facility] Creatinine 1.18 0.70 - 1.30 mg/dL LAB CHEMISTRY METHOD 05/08/2024 10:19 AM [facility] eGFR 63 >=60 mL/min/1. 73m2 LAB CHEMISTRY METHOD 05/08/2024 10:19 AM [facility] Comment:Calculation based on the??Chronic Kidney Disease Epidemiology Collaboration (CKD-EPI) equation refit??without adjustment for race. BUN/Creatinine Ratio 16.9 LAB CHEMISTRY METHOD 05/08/2024 10:19 AM [facility] Calcium 9.7 8.5 - 10.5 mg/dL LAB CHEMISTRY METHOD 05/08/2024 10:19 AM [facility] Blood Venous blood specimen / Unknown Venipuncture / Unknown 05/08/2024 8:52 AM EST 05/08/2024 8:52 AM EST us Rosalio Posada MD LAB BLOOD ORDERABLES F inal Result [facility] [address] [place] [address], [place] [phone] * Falls Risk Assessment (10/19/2023) Falls Risk Assessment Abstracted Avtar Card MD HEALTH MAINTENANCE Final Result * Depression Screening (10/19/2023) Depression Screening Abstracted us Historical Provider HEALTH MAINTENANCE Final Result * Colonoscopy (03/28/2017) Colonoscopy Negative, Abstracted Comment:Polyps are benign, p lease plan for colonoscopy again in 5 years. Anatomical Region Laterality Modality Other [facility] Provider HEALTH MAINTENANCE Final Result * Hepatitis C Screening (01/10/2007) Pathologist [facility] Hepatitis C Screening Abstracted [facility] Provider HEALTH MAINTENANCE Final Result from Last 3 Months or Most Recently Relevant to Health Maintenance Insurance MEDICARE [facility] Care Teams Strap Stitcher Relationship Specialty Start Date End Date Rosalio Posada MD [address] [place] [address] PCP - General 02/23/23
--- OUTSIDE RECORDS SUMMARY | 2024-10-09 14:22 | XMS_ITS | Data Portability ---
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 He appears to be doing well clinically. He states he may have pulled his groin muscle however the pain was nonreproducible today's visit he will keep an eye on it. His exam is overall unremarkable. With the exception of a notable skin lesion concerning for melanoma on his lateral thigh. Upon further questioning patient states he came from his supervisor broadloom nurse practitioner from [facility] dermatology in [place] this morning. He is treated for basal cell carcinoma. I immediately contacted the provider Richard Licea nurse practitioner who had the patient come back immediately after his appointment with me at today's visit. Regarding his antibiotic prophylaxis he no longer needs to take this however if his dentist wishes to continue they can take over management. I will see the patient back in 5 years time for recall exam should he have any orthopedic needs should they arise he should contact her office for proper referral to the appropriate specialist. I did review his radiographs in detail. Indirect care and treatment in conjunction with Dr. Finney Additional treatment plan discussed with the patient (only initiated if in boldface font) otherwise not applicable. Treatment may include the following; - Provider focused nonsteroidal anti-inflammatory regimen (discussed were the pros, cons, benefits and risks as well as any black box warnings) in patients over 60 years old they should be very cautious in taking these medications due to potential decreased kidney function and or elevated blood pressure. - Analgesic pain medication for pain suppression (discussed were the pros, cons, benefits and risks as well as any black box warnings) - The use of topical pain relieving medication were discussed - The use of ice to decrease inflammation and pain - The use of assistive ambulatory devices for ambulation and fall prevention - Formal specific guided physical therapy program I reviewed my findings at length with the patient today. ? ? ?We discussed the nature and etiology of this problem along with current treatment options. We discussed the expected course and outcomes and what to expect. We also discussed risks and benefits. ? ? ? All of their questions were answered today, and there was exhibited understanding and comprehension of all that was discussed. Time Spent: 10 minutes were spent reviewing previous imaging and charting. ? ? ?15 minutes were spent obtaining patient history. ? ? ?10 minutes were spent on physical exam. ? ? ?10? ? ?minutes were spent explaining diagnosis and assessment. Today's documentation was made using voice recognition software. This note may contain grammatical errors secondary to the software. Not available 02/01/2023 12:53:15 Plan of Treatment Reminders Order Date Submit Date Provider Last Modified By Organization Details Last Modified Time Details Appointments None record ed. Lab None record ed. Referral None record ed. Procedures None record ed. Surgeries None record ed. Imaging XR, hip, unilat eral, 2 or 3 view 023 02/01/20 23 [email or web address] [facility], [address], [address], [place], [address], 3 10:56:36 Medication Orders None record ed. Patient TargetsNo targets recorded. Patient Instructions Encounter Date Encounter Id Patient Instructions Last Modified By Organization Details Last Modified Time 01/31/2023 [id number] Well-seated well-positioned right total hip arthroplasty without sign of loosening. No acute bony abnormality. Not available 02/01/2023 12:52:28 Reason for Referral None Reported. Problems Name Problem SNOMED Code Status Onset Date Resolution Date Notes Provider Name and Address Organization Details Recorded Time Pigmented skin lesion of uncertain nature 392523322 Active 023 LUIS ALBERTO RICHARDSON PA-C [address] [facility], [place], [address] , [place] [facility] 3 12:51:59 Problem Notes None recorded. Procedures Surgical History Date Name Laterality Status Provider Name and Address Organization Details Recorded Time Total hip arthroplasty completed [facility] 01/31/2023 15:53:15 Imaging Results None recorded. Procedure Notes None recorded. Medical Equipment None Reported. Allergies No known drug allergies Medications Name Sig Start Date Stop Date Status Note LastModified by Organization Details LastModified Time prednisone 10 mg tablet TAKE 3 TABLETS BY MOUTH ONCE DAILY FOR 3 DAYS, TAKE 2 TABS ONCE DAILY FOR 3 DAYS, THEN TAKE 1 TAB ONCE DAILY FOR 3 DAYS active Not Available Not Available N ot Available hydrocodone 5 mg-acetamino phen 325 mg tablet TAKE 1 TABLET BY MOUTH EVERY 4 TO 6 HOURS NEEDED FOR PAIN active Not Available Not Available No t Available amlodipine 2.5 mg tablet TAKE 1 TABLET BY MOUTH ONCE DAILY active Not Available Not Available No t Available allopurinol 100 mg tablet TAKE 3 TABLETS BY MOUTH ONCE DAILY active Not Available Not Available No t Available doxycycline monohydrate 100 mg tablet TAKE 1 TABLET BY MOUTH TWICE DAILY FOR 7 DAYS active Not Available Not Available No t Available amoxicillin 500 mg tablet TAKE FOUR CAPSULES BY MOUTH ONE HOUR BEFORE APPOINTMENT active Not Available Not Available Not Available cefuroxime axetil 500 mg tablet TAKE 1 TABLET BY MOUTH TWICE DAILY FOR 7 DAYS active Not Available Not Available No t Available methylpredni solone 4 mg tablets in a dose pack active Not Available Not Available No t Available colchicine 0.6 mg tablet TAKE 1 TABLET BY MOUTH ONCE DAILY active Not Available Not Available No t Available fluticasone propionate 50 mcg/actuatio n nasal spray,suspen hannah USE 2 SPRAY(S) IN EACH NOSTRIL ONCE DAILY active Not Available Not Available N ot Available tadalafil 20 mg tablet TAKE 1 TABLET BY MOUTH ONE HOUR BEFORE DESIRED ACTIVITY DIRECTED TAKE 30 MINS BEFORE ANY MEAL active Not Available Not Available No t Available metoprolol tartrate 25 mg tablet TAKE 1 TABLET BY MOUTH TWICE DAILY active Not Available Not Available No t Available BinaxNOW COVID-19 Ag Self Test kit TEST DIRECTED TODAY active Not Available Not Available No t Available Vitals Date Recorded Body height Body mass index (BMI) Body weight Provider Name and Address Organization Details Last Updated DateTime 01/31/2023 177.8 cm 29.7 kg/m2 46930.62 g [facility] 01/31/2023 13:54:14 Social History None recorded. Functional Status None recorded. Mental Status None recorded. Family History Nothing Reported. Medical History Condition Response Heart Attack (SC) Y Blood Transfusion Y Past Encounters Encounter ID Performer Location Encounter Start Date Encounter Closed Date Diagnosis/Indication Diagnosis SNOMED-CT Code Diagnosis ICD10 Code Diagnosis Note [id number] [facility] [address] [place] [address] 01/31/2023 13:00:07 01/31/2023 13:42:30 History of total replacement of right hip joint [id number] 61632 Z96.641 Pigmented skin lesion of uncertain nature 693279506 L81.9 Health Concerns Section Related Observation LastModified by Organization Detai ls LastModified Time None Recorded Concern Status LastModified by Organization Details LastModified Time None Recorded Advance Directives Directive None Recorded Payers Encounter Date Sequence Insurance Name Policy Number Policy Rudd Covered Member ID Rudd Member ID Guarantor Name 01/31/2023 1 [place] [email or web address] Amandio B Agee [id number] Amandio B Agee 01/31/2023 2 [place] [id number] Amandio B Agee [id number] [facility] Notes Date Note Type Note Provider Name and Address Organization Details Recorded Time 01/31/2023 text/html R hip. R-IGNACIA 201 [address] [place]. xrays today Patient states he is here for annual follow-up on his hip replacement. He states he has been doing well he does do stretching exercises takes his antibiotics. Here for scheduled follow-up states occasional discomfort with overactivity otherwise doing well. He states he may have pulled his groin this morning getting out of bed . LUIS ALBERTO RICHARDSON PA-C [address] [facility] [address], [place], [address], [place] [facility] 02/01/2023 12:53:25
--- OUTSIDE RECORDS SUMMARY | 2024-10-09 14:23 | XMS_ITS | Clinical Summary ---
Author Organization [facility] Address [address] [place] [address] Care Team Providers Care Wet Wheeler Name Role Phone Abiodun Godoy MD Primary Care Provider Allergies Active Allergy Reactions Criticality Noted Date Comments Ezetimibe Other (See Comments) 02/20/2012 Statins 03/13/2017 Medications Medication Sig Dispensed Refills Start Date End Date Status metoprolol tartrate (LOPRESSOR) 50 MG tablet Take 50 mg by mouth 2 (two) times a day. 0 Active ketoconazole (NIZORAL) 2 % cream Apply topically daily. 0 Active gabapentin (NEURONTIN) 300 MG capsule Take 300 mg by mouth 3 (three) times a day. 0 Active Multiple Vitamin (MULTI VITAMIN DAILY PO) Take by mouth. 0 Active cetirizine (ZYRTEC) 10 MG tablet Take 10 mg by mouth daily. 0 Active Evolocumab 140 MG/ML SOAJ Inject under the skin. 0 Active allopurinol (ZYLOPRIM) 100 MG tablet Take 300 mg by mouth daily. 0 11/16/2020 Active furosemide (LASIX) 20 MG tablet 0 10/06/2020 Active ibuprofen 600 MG tablet Take 1 tablet by mouth 3 (three) times a day as needed. 0 07/17/2019 Active naproxen (EC NAPROSYN) 500 MG EC tablet TAKE 1 TABLET BY MOUTH TWICE DAILY NEEDED FOR MODERATE PAIN 0 12/08/2020 Active omeprazole (PriLOSEC) 40 MG capsule Daily 0 05/19/2017 Active tamsulosin (FLOMAX) 0.4 MG CAPS Daily 0 04/03/2015 Active zolpidem (AMBIEN) 10 MG tablet Bedtime as needed for Sleep 0 03/30/2015 Active colchicine 0.6 MG tablet Take 1 tablet by mouth daily. 0 10/12/2021 Active amoxicillin (AMOXIL) 500 MG tablet Take 4 tabs 1 hour prior to dental appointment 20 tablet 3 12/28/2021 Active Active Problems Problem Noted Date Diagnosed Date Trochanteric bursitis, right hip 12/22/2020 Primary thrombocytopenia 04/03/2017 Family History Medical History Relation Name Comments Cancer Mother Relation Name Status Comments Mother Social History Tobacco Use Types Packs/Day Years Used Date Smoking Tobacco: Former Smokeless Tobacco: Never Alcohol Use Standard Drinks/Week Comments Yes 0 (1 standard drink = 0.6 oz pur e alcohol) Sex and Gender Information Value Date Recorded Sex Assigned at Not on file Gender Identity Not on file Sexual Orientation Not on file Job Start Date Occupation Industry Not on file Not on file Not on file Last Filed Vital Signs Vital Sign Reading Time Taken Comments Blood Pressure 173/75 04/03/2017 1:13 PM EST Pulse 60 04/03/2017 1:13 PM EST Temperature - - Respiratory Rate - - Oxygen Saturation - - Inhaled Oxygen Concentration - - Weight 99.8 kg (220 lb) 12/22/2020 2:05 PM EDT Height 177.8 cm (5' 10 ) 12/22/2020 2:05 PM EDT Body Mass Index 31.57 12/22/2020 2:05 PM EDT Plan of Treatment Health Maintenance Due Date Last Done Comments Hepatitis C Screening 1945 COVID-19 Vaccine (#1) 07/01/1945 Depression Screening 1956 BMI Counseling 1962 Preventative Health Evaluation 1962 Shingrix-Zoster Vaccine (1 of 2) 1994 Fall Risk Assessment 2009 RSV Adult > 60+ Yrs or (1 - 1-dose 75+ series) 12/30/2019 DTap / Tdap / Td (2 - Td or Tdap) 05/03/2023 05/03/2013 Influenza Vaccine (#1) 2024 1, 04/06/2018, 02/15/2017, Additional history exists Pneumococcal Vaccine Completed 03/09/2016, 03/24/20 11 Hepatitis B Vaccines Aged Out No long er eligible based on patient's age to complete this topic RSV Ped < 20 months Aged Out No longe r eligible based on patient's age to complete this topic Care Teams Wet Wheeler Relationship Specialty Start Date End Date Abiodun Godoy MD [address] [place] [address] PCP - General Stone Cleaner 12/22/20
--- OUTSIDE RECORDS SUMMARY | 2024-10-09 14:23 | XMS_ITS | Patient Health Record ---
Author Organization [facility] Address [address] [facility] [address] [place] [address] Care Team Providers Care Planogrammer Name Role Phone Gus Lowe Primary Care Provider Unavailabl e Allergies Allergen (clinical drug ingredient) Drug/Non Drug Allergy documented on EMR Reaction Allergy Type Onset Date Status ezetimibe Zetia Unknown Drug Allergy Active Substance with 1-slmvqmo-5-methylgluta ryl-coenzyme A reductase inhibitor mechanism of action (substance) Statins Unknown Drug Allergy Active Reason For Referral No Information Medications Medication SIG (Take, Route, Frequency, Duration) Notes Start Date End Date Status Metoprolol Tartrate 25 MG 1 tablet with food Orally Twice a day Active Colchicine 0.6 MG 1 tablet Orally Active Allopurinol 100 MG 1 tablet Orally Once a day Not-Taking Aspirin 81 MG 1 tablet Orally Once a day Active Sucralfate 1 GM 1 tablet on an empty stomach Orally Twice a day Not-Taking Antibiotic unsure which one-for tooth abcess Not-Taking Multivitamin - 1 tablet Orally Once a day Active Cetirizine HCl 10 MG 1 tablet Orally Once a day Active predniSONE 5 MG 1 tablet Orally Once a day Active Problems Problem Type SNOMED Code ICD Code Onset Dates Problem Status W/U Status Risk Notes Problem 585352483 Hallux rigidus, right foot (M20.21) Active confirmed Problem 087508331 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) Active confirmed Problem 416059581 Neuritis of left lower extremity (G57.92) Active confirmed Problem 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 Plan Of Treatment Pending Test Test Name Order Date X ray : Foot, left 3v 03/23/2020 X ray : Foot, left 3v 11/14/2022 Nail avulsion partial/complete 1 PUNCH BX SKIN SINGLE LESION 10/13/2021 INJ TENDON SHEATH/LIGAMENT/FASCIA 2022 DRAIN/INJECT, SMALL JOINT/BURSA 03/23/20 20 DRAIN/INJECT, SMALL JOINT/BURSA 08/01/19 21 WALKING BOOT PNEUMATIC AND/OR VAC 2020 Insurance Providers Payer Name Payer Address Payer Phone Subscriber Number Group Number Insured Name Patient Relationship to Insured Coverage Start Date Coverage End Date Medicare of [place] [address] [place] [phone] [id number] Meggan Agee Self - patient is the insured Medex [facility] [address] [place] [address] [phone] [id number] [phone] Royal Ageemax Self - patient is the insured Medications Administered Medication Instructions Date of Administration Dosage Notes Dexamethasone 03/23/2020 2 mg Dexamethasone 07/31/2020 2 mg Dexamethasone 11/14/2022 2 mg Kenalog 03/23/2020 20 mg Kenalog 07/31/2020 20 mg Kenalog 11/14/2022 5 mg Medical (General) History Medical History History ICD Code Endocarditis and heart valve disorders i n diseases classified elsewhere I39 Hyperlipidemia, unspecified E78.5 Impaired fasting glucose R73.01 Chronic kidney disease, stage 3 unspecif ied N18.30 Urgency of urination R39.15 Other chondrocalcinosis, right knee M11. 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 Obesity, unspecified E66.9 Nonrheumatic aortic (valve) insufficienc y I35.1 Male erectile dysfunction, unspecified N 52.9 Gout, unspecified M10.9 Osteoarthritis of hip, unspecified M16.9 Lumbosacral radiculopathy M54.17 Primary osteoarthritis, unspecified hand M19.049 Angioma Melena K92.1 Sleep disorder, unspecified G47.9 Enterocolitis due to Clostridium diffici le, not specified as recurrent A04.72 Rheumatic mitral valve disease, unspecif ied I05.9 Generalized anxiety disorder F41.1 + PPD CPPD Surgical History Surgery Date(Month/Year) Historical ulnar nerve release Historical hip surgery cardiac ablation for atrial flutter 07/11 21 Hospitalization History Reason Date(Month/Year)
== END 2024-10-09 14:56 | disposition home or self-care (01) ==
LOC: HO.HOS 13:50
PROVIDERS: PCP Nurse Practitioner Family; Visit Provider Orthopaedic Surgery
DX: M25.552 Pain in left hip (principal); M70.62 Trochanteric bursitis, left hip
CPT/HCPCS: 99203; G2211

== ENCOUNTER → 2024-10-09 14:05 | Outpatient (BNV) | payer MEDICARE, SELFPAY | PROVIDERS: Visit Provider Radiology Diagnostic Radiology | DX: M25.70 Osteophyte, unspecified joint (principal) | CPT/HCPCS: 73502 ==

== ENCOUNTER 2024-10-29 15:57 | Outpatient (AMB) | payer MEDICARE, SELFPAY ==
[2024-10-29 16:01] VITALS: BP 122/62; PULSE 66; O2SAT 95; BMI 30.1
--- NOTE | 2024-10-29 16:01 | MHC.OFFVIS ---
Vital Signs 10/29/24 16:01 Height 5 ft 10 in Weight 210 lb 1.608 oz BMI 30.1 BP 122/62 Blood Pressure Location Lt brachial Position Sitting Pulse 66 Pulse Source Pulse Oximeter Pulse Oximetry (%) 95 Oxygen Delivery Method Room Air Intake Visit Reasons: Gout Intake Note: Patient last seen by Doctor Linsey Hester on 12/11/23. Presents today for Gout follow up and test results. Allergies Ljsjkhh-OFF-BuN Reductase Inhibitor Adverse Reaction (Verified 10/29/24 16:04) Joint Pain Medication List - Last Reconciled 10/29/24 by Amy Roberts MD allopurinol 300 mg (3 x 100 mg) PO DAILY amlodipine 2.5 mg PO DAILY [aspirin 81 mg PO DAILY] colchicine 0.6 mg PO DAILY famotidine 20 mg PO BID fluticasone propionate 50 mcg/actuation intranasal methylprednisolone (Medrol (Conor)) PO PER PKG DIR metoprolol tartrate 25 mg PO BID sucralfate 1 g PO BID tadalafil 20 mg PO DIRECTED HPI Comments Details: Patient is a 78-year-old male with paroxysmal AFib, hypertension, hyperlipidemia complicated by coronary artery disease status post aorto coronary artery bypass, polyarticular osteoarthritis and gout here today for follow up Interval History: Patient last seen 12/11/[address] Hester. At that time he was following up for his history of gout, pseudogout and osteoarthritis. At that time he had a gout flare back in April of 2023, was after his last visit with Dr. Xavier January of 2023. He received an intramuscular shot with improve his symptoms and no further gout flares since then. Last uric acid was at goal no changes made to his allopurinol Since that visit he reports a gout flare May 2024 to his right foot Evaluated by a provider, and received a shot With improved symptoms Rheumatologic History: First history in the system with Dr. Derrick Xavier: The patient returns today for evaluation of his gout, osteoarthritis in the knees, carpal tunnel symptoms, and chondrocalcinosis of the knees. I had seen him last fall when he was on colchicine 0.6 mg daily but had run out of the allopurinol. We did restarted at the previously therapeutic dose of 300 mg daily. With this combination he has not had any gout attacks this year. He seems to be tolerating these medications. Earlier in the year he did have a carpal tunnel surgery on the right hand but its outcome was disappointing as he still has numbness in the fingers. He has known carpal tunnel syndrome on the left but that does not seem to bother him as much. He also underwent an ablation procedure for atrial fibrillation so is no longer on anticoagulants. Current Rheumatology Medication(s): Allopurinol 300mg daily Colchicine 0.6mg daily PFSH Medical History Anxiety Gout Erectile dysfunction Aortic insufficiency Ltenlzb-ji-kof HTN (hypertension) Thoracic aortic aneurysm Pulmonary nodules Thrombocytopenia CKD (chronic kidney disease) PAD (peripheral artery disease) Tricuspid valve regurgitation Mitral valve regurgitation H/O endocarditis CAD (coronary artery disease) Osteoarthritis HLD (hyperlipidemia) Cervical radiculopathy Surgical History S/P mitral valve repair (~2006) Hx of CABG (~2006) Family History Father No problems noted. Mother No problems noted. 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 Review of Systems Const Details: Review of Systems Constitutional: Denies fever, chills, weight loss ENT: Denies vision changes, eye pain or eye redness, dental caries, dry mouth GI: Denies nausea, vomiting, diarrhea, abdominal pain, change in BM Pulm: Denies SOB, DERAS, hemoptysis, wheezing Cards: Denies chest pain, palpitations Skin: Denies Raynaud's, rash, nail changes, photosensitivity, DATABASE PROGRAMMER ANALYST: Denies headaches, weakness, paresthesias, recurrent falls MSK: as per HPI All other systems reviewed and are unremarkable except noted above Physical Exam Vital Signs: Last Vital Signs Pulse 66 10/29/24 16:01 BP 122/62 10/29/24 16:01 Pulse Ox 95 10/29/24 16:01 Oxygen Delivery Method Room Air 10/29/24 16:01 BMI result Body Mass Index 30.1 Vital signs reviewed Physical Examination CONSTITUITIONAL Patient alert and cooperative. Well appearing and in no apparent painful distress HEENT Conjunctiva and sclera clear.?No lymphadenopathy. ? CHEST/RESPIRATORY SYSTEM Normal respiratory effort and able to speak in complete sentences. ?Clear to auscultation bilaterally. ?No crackles, rales, rhonchi, wheezes heard. CARDIAC SYSTEM Regular rate and rhythm. ?S1 and S2 heard no murmurs. ?Radial pulses intact bilaterally MSK Hands: ?Able to make a fist. No synovitis noted to the MCPs, PIPs or DIPs. ?No tenderness to palpation of these joints. Herbeden's nodes ? Wrists: ?Full range of motion at the wrists without pain. ?No tenderness to palpation or synovitis noted to the wrists. Elbows: Decreased ROM bilaterally about 60degrees of movement Shoulders: Full range of active range of motion without pain. No tenderness, weakness, swelling, increased warmth or erythema. Knees: ?Full range of motion. ?No tenderness, swelling, increased warmth or erythema.?No effusion. Crepitations felt bilaterally Ankles: Full range of motion. ?No tenderness, swelling, increased warmth or erythema.? Feet: ?Negative squeeze test. ?No tenderness to palpation or swelling of the MTPs. Tender points:?No tenderness to palpation of the bilateral trapezius, supraspinatus, greater trochanters, anterior costochondral junctions, bilateral gluteal areas, bilateral suboccipital muscle insertions SKIN Skin intact without rashes. Results Reviewed Results Reviewed: Laboratory Tests 01/30/23 12/11/23 11:44 11:40 Sodium 141 Potassium 5.1 Chloride 106 Carbon Dioxide 26 BUN 25 H Creatinine 1.15 Uric Acid 5.0 4.4 Assessment & Plan Assessment & Plan (1) Gout: Comment: Recurrent attacks; + MSU crystals right knee 2014 On/off allopurinol - Restarted 09/2019 Code(s): M10.9 - Gout, unspecified Category: Medical Qualifiers: Gout site: multiple sites Gout etiology: idiopathic Chronicity: chronic Presence of tophus: without tophus Qualified Code(s): M1A.09X0 - Idiopathic chronic gout, multiple sites, without tophus (tophi) Plan: #Gout Patient is a 78-year-old male with crystal proven gout here today for follow up. Last uric acid was at goal at 4.4. We will recheck his uric acid today. Continue allopurinol 300 mg daily and colchicine 0.6mg Plan - Allopurinol 300mg - Colchicine 0.6mg - Medrol dose pack for flare - Labs today: CMP, Uric Acid - RTC 04/2025 (2) Osteoarthritis of knees, bilateral: Comment: with chondrocalcinosis Code(s): M17.0 - Bilateral primary osteoarthritis of knee Category: Medical Qualifiers: Osteoarthritis type: primary Qualified Code(s): M17.0 - Bilateral primary osteoarthritis of knee Plan: #Bilateral knee OA Doing well No new complaints (3) Encounter for monitoring allopurinol therapy: Code(s): Z51.81 - Encounter for therapeutic drug level monitoring; Z79.899 - Other retirement (current) drug therapy Plan: #Long-term Current Use of Allopurinol Risks and benefits of allopurinol discussed with patient Benefits include decreased gout flares, remission of gout and reduction of tophi Risks include allopurinol hypersensitivity syndrome which is a severe cutaneous adverse reaction associated with allopurinol use particularly in patients who are HLA B*5801 positive, increased transaminases, GI upset including diarrhea, nausea and vomiting, and other dermatologic manifestations (4) On colchicine therapy: Code(s): Z79.899 - Other fishing vessel deckhand (current) drug therapy Plan: #Long-term use of colchicine Risks and benefits of long-term colchicine for the management of this patient's gout discussed with patient. Benefits include reduced occurrence of flares while we titrate and regulate his uric acid on allopurinol and other uric acid lowering medications. ? Risks include worsening myalgias especially if on statins and GI upset including diarrhea Plan I spent 30 minutes reviewing the record and labs, taking a history, examining the patient, discussing the treatment plan, ordering diagnostic work up and documenting in the medical record Orders: Orders Comprehensive Met. Panel Today M1A.09X0 - Idiopathic chronic gout, multiple sites, without tophus (tophi) Uric Acid Today M1A.09X0 - Idiopathic chronic gout, multiple sites, without tophus (tophi) Coding Level of Care Code Est Pt Level 4 (60382) Complex EM visit Add On G2211 Diagnoses Idiopathic chronic gout of multiple sites without tophus M1A.09X0 Gout site: multiple sites Gout etiology: idiopathic Chronicity: chronic Presence of tophus: without tophus Primary osteoarthritis of both knees M17.0 Osteoarthritis type: primary Encounter for monitoring allopurinol therapy Z51.81; Z79.899 On colchicine therapy Z79.899
== END 2024-10-29 16:40 | disposition home or self-care (01) ==
LOC: HO.RHE 15:57
PROVIDERS: PCP Internal Medicine; Visit Provider Student in an Organized Health Care Education/Training Program
DX: M1A.09X0 Idiopathic chronic gout, multiple sites, without tophus (tophi) (principal); M17.0 Bilateral primary osteoarthritis of knee; Z51.81 Encounter for therapeutic drug level monitoring; Z79.899 Other long term (current) drug therapy
CPT/HCPCS: 99214; G2211

== ENCOUNTER 2024-10-29 15:57 | Outpatient (REF) | payer MEDICARE, SELFPAY ==
[2024-10-29 18:09] LABS: Alanine Aminotransferase 84 U/L (0-40); Albumin Level 4.3 g/dL (3.5-5.0); Alkaline Phosphatase 50 U/L (39-117); Anion Gap 13 (12-20); Aspartate Amino Transferase 51 U/L (5-37); Bilirubin Total 0.7 mg/dL (0.0-1.0); Blood Urea Nitrogen 22 mg/dL (9-16); Calcium 9.7 mg/dL (8.4-10.2); Carbon Dioxide 28 mmol/L (22-29); Chloride 106 mmol/L (96-108); Estimated Glomerular Filt Rate > 60; Glucose Random 94 mg/dL (60-115); Potassium 4.5 mmol/L (3.3-5.1); Sodium 142 mmol/L (135-145); Total Protein 6.8 g/dL (6.5-8.0); Uric Acid 4.9 mg/dL (3.4-7.0)
== END 2024-10-29 15:58 | disposition home or self-care (01) ==
LOC: HO.LAB 15:57
PROVIDERS: Visit Provider Student in an Organized Health Care Education/Training Program
DX: M1A.09X0 Idiopathic chronic gout, multiple sites, without tophus (tophi) (principal); M17.0 Bilateral primary osteoarthritis of knee; Z79.899 Other long term (current) drug therapy
CPT/HCPCS: 36415; 80053; 84550; 99212